=== PATIENT | male | born 1950 | race Caucasian/White ===

== ENCOUNTER 2020-07-12 08:08 | Day surgery (SDC) | payer MEDICARE, OTHER ==
[2020-07-08 11:54] VITALS: BMI 37.1
[~2020-07-12 08:08] MED LIST: ALPRAZolam 0.25 MG TAB PO PRN; ALPRAZolam 0.5 MG TAB PO PRN; ASPIRIN 325 MG TAB PO STA; ATORVASTATIN 80 MG TAB PO STA; NITROGLYCERIN SL TABS 0.4 MG TAB SUBLINGUAL PRN; SODIUM CHLORIDE 0.9% 1,000 ML in EMPTY BAG 1 BAG IV ONE
[2020-07-12] MEDS ORDERED: SODIUM CHLORIDE 0.9% 1,000 ML IV ONE (08:35)
[2020-07-12 08:46] VITALS: RESP 16; TEMP 98.3
[2020-07-12] MEDS ORDERED: LIDOCAINE 1% INJ 10MG/ML (20 ML MDV) ONE (08:58)
[2020-07-12] MEDS ORDERED: VERAPAMIL 2.5 MG/ML 2 ML AMP ONE (08:58)
[2020-07-12] MEDS ORDERED: MIDAZOLAM 2 MG/2 ML VIAL IV ONE (09:15)
[2020-07-12] MEDS ORDERED: LIDOCAINE 1% INJ 10MG/ML (20 ML MDV) SQ ONE (09:16)
[2020-07-12] MEDS: VERAPAMIL SYRINGE (5 MG/10 ML) INTRAARTER ONE ×2 (09:18→09:34)
[2020-07-12] MEDS ORDERED: HEPARIN SODIUM 1,000 UN/ML (10ML VL) ONE (09:18)
[2020-07-12] MEDS ORDERED: HEPARIN SODIUM 1,000 UN/ML (10ML VL) IV ONE ×2 (09:19)
[2020-07-12] MEDS ORDERED: IOPAMIDOL-370 100ML BTL INJ ONE (09:34)
[2020-07-12] MEDS ORDERED: SODIUM CHLORIDE 0.9% 1,000 ML IV SCH (09:45)
--- NOTE | 2020-07-12 10:27 | CC ---
CARDIAC CATHETERIZATION REPORT DATE OF SERVICE: 07/12/2020. PERFORMING PHYSICIAN: Tre Raymundo MD. PROCEDURE PERFORMED: 1. Selective right and left coronary angiogram. 2. Left heart catheterization. INDICATION: This is a 70-year-old gentleman with hypertension and dyslipidemia who continues to have chest discomfort. He is known to have significant family history of coronary artery disease. Because of that, a heart catheterization was advised. APPROACH: Right radial artery. COMPLICATION: None. LEVEL OF SEDATION: Moderate with sedation length of 25 minutes. PROCEDURE DESCRIPTION: After obtaining an informed consent, the patient was brought to the cardiac dental laboratory technology teacher. The right radial artery was cannulated using micropuncture technique and a micropuncture wire passed easily, then I placed a 6-Palauan sheath at the right radial artery. After that, I gave the patient 2 mg of verapamil IA and 10,000 units of heparin IV. Selective right and left coronary angiogram performed using JR4 and JL3.5 catheters. Left heart catheterization was performed using the JR4 catheter which crossed the aortic valve, then I did pullback across the valve. The procedure was completed without any complication. SELECTIVE CORONARY ANGIOGRAM: 1. The right coronary artery is a large caliber vessel and it seems to be a dominant vessel. The RCA is chronically occluded in the very proximal portion and fills by collateral from the left coronary system. 2. The left main is a large caliber vessel. It is calcified with mild disease only. It bifurcates into LCX and LAD. 3. The LCX is a large caliber vessel, it is a nondominant vessel. The proximal left circumflex has mild disease only. The mid left circumflex appeared to be angiographically normal and gives rise into the first and second obtuse marginal branches, both appeared to have mild diffuse disease and the circumflex continues after that as a small to medium caliber vessel in the AV groove. 4. The LAD. The very proximal LAD appeared to be calcified with intermediate lesion, appeared to be in the range of 50% to 60%. The mid LAD appeared to have mild disease only and the LAD distally appeared to be angiographically normal. 5. HEMODYNAMICS: The LVEDP was about 10 to 12 mmHg without significant gradient across the aortic valve. CONCLUSION: 1. Calcified right and left coronary systems. 2. Chronic total occlusion of the RCA. 3. Mild to moderate nonobstructive disease involving the left circumflex. 4. Intermediate to severe lesion involving the proximal LAD appeared to be in the range of 50% to 60%. POSTPROCEDURE MANAGEMENT: 1. Giving the above anatomy, I did advise maximize medical treatment. 2. Aggressive cholesterol control. 3. If the patient continues to be symptomatic, we might consider doing an FFR of the LAD. SUSAN / REDD: [id number] /
[2020-07-12 14:24] VITALS: BP 132/76; PULSE 56
== END 2020-07-12 14:25 | disposition home or self-care (01) ==
LOC: CATHCVL 08:08
PROVIDERS: ATTEND Internal Medicine Interventional Cardiology
DX: I25.10 Atherosclerotic heart disease of native coronary artery without angina pectoris (principal); I25.82 Chronic total occlusion of coronary artery; I10 Essential (primary) hypertension; E78.00 Pure hypercholesterolemia, unspecified; Z88.7 Allergy status to serum and vaccine; Z79.82 Long term (current) use of aspirin; Z79.899 Other long term (current) drug therapy; Z82.49 Family history of ischemic heart disease and other diseases of the circulatory system
CPT/HCPCS: 93458; C1769; C1894; J2250; J2001; J1644; Q9967

== ENCOUNTER 2024-08-13 01:55 | Inpatient (IN) | payer MEDICARE, OTHER ==
[2024-08-13] MEDS: SODIUM CHLORIDE 0.9% 1,000 ML IV STA (02:45)
[2024-08-13] MEDS: ONDANSETRON 4 MG/2 ML VIAL IVP STA (02:45)
[2024-08-13] MEDS: HYDROmorphone 0.5 MG/0.5 ML SYRINGE IVP STA (02:45)
[2024-08-13 03:17] LABS: Basophils % (A) 0 %; Eosinophils # (A) 0.2 k/uL (0-0.7); Eosinophils % (A) 2 %; HCT 32.9 % (39.0-53.0); HGB 11.1 gm/dL (13.0-17.5); Lymphocytes # (A) 2.8 k/uL (1.0-4.8); Lymphocytes % (A) 31 %; MCH 31.5 pg (25.0-35.0); MCHC 33.6 g/dL (31.0-37.0); MCV 93.7 fL (80.0-100.0); Mean Platelet Volume 7.6; Monocytes # (A) 0.5 k/uL (0-1.0); Monocytes % (A) 6 %; Neutrophils # (A) 5.2 k/uL (1.3-7.7); Neutrophils % (A) 59 %; Platelet Count 210 k/uL (150-450); RBC 3.51 m/uL (4.30-5.90); RDW 15.3 % (11.5-15.5); WBC 8.8 k/uL (3.8-10.6)
[2024-08-13 03:43] LABS: ALT 23 U/L (4-49); AST 28 U/L (17-59); African American GFR (CKD) 53 (>60 ml/min/1.73 sqM); Albumin 3.1 g/dL (3.5-5.0); Alkaline Phosphatase 91 U/L (38-126); Anion Gap 3 mmol/L; Blood Urea Nitrogen 26 mg/dL (9-20); Calcium 8.6 mg/dL (8.4-10.2); Carbon Dioxide 26 mmol/L (22-30); Chloride 113 mmol/L (98-107); Glucose 105 mg/dL (74-99); Non-African American GFR(CKD) 45 (>60 ml/min/1.73 sqM); Potassium 3.9 mmol/L (3.5-5.1); Sodium 142 mmol/L (137-145); Total Bilirubin 0.5 mg/dL (0.2-1.3); Total Protein 5.7 g/dL (6.3-8.2)
[2024-08-13] MEDS ORDERED: NALOXONE 0.4 MG/ML 1 ML VIAL IV PRN (04:10)
[2024-08-13 04:11] LABS: Appearance,Urine Cloudy (Clear); Bacteria,Urine Few /hpf; Bilirubin,Urine Negative (Negative); Blood,Urine Trace (Negative); Color,Urine Yellow; Glucose,Urine (UA) Negative (Negative); Ketones,Urine Negative (Negative); Leukocyte Esterase,Urine Large (Negative); Mucus,Urine Rare /hpf; Nitrite,Urine Negative (Negative); PH, Urine 5.5 (5.0-8.0); Protein,Urine 1+ (Negative); RBC,Urine 8 /hpf (0-5); Specific Gravity,Urine 1.014 (1.001-1.035); Urobilinogen,Urine <2.0 mg/dL (<2.0); WBC,Urine >182 /hpf (0-5)
--- NOTE | 2024-08-13 04:19 | ED ---
General Adult HPI - General Chief complaint: Abdominal Pain Stated complaint: Abd pain Time Seen by Provider: 08/13/24 02:20 Source: patient, EMS, RN notes reviewed, old records reviewed Mode of arrival: EMS Limitations: no limitations - History of Present Illness Initial comments: Patient is a 74-year-old male presents emergency department for incarcerated hernia. Was transferred from [facility]. Has a history of cancer, hypertension currently on oral chemotherapy medication. States he was showering last night when he suddenly noticed a lump in his lower left abdomen. It was painful. Still passing gas and has not yet attempted a bowel movement. Denies nausea or vomiting. Does have a history of anterior abdominal hernias. Presented to [facility] where they found he had an incarcerated abdominal hernia. Labs otherwise were unremarkable. Transferred here for surgical evaluation. Apparently also had attempted reduction while at [facility]. Has no other acute complaints at this time. Presents for further evaluation. - Related Data Home Medications Medication Instructions Recorded Confirmed Aspirin [Adult Low Dose Aspirin EC] 81 mg PO HS 07/08/20 07/12/20 Celecoxib [CeleBREX] 200 mg PO DAILY 07/08/20 07/12/20 Citric Acid 590 mg PO DAILY 07/08/20 07/12/20 Omeprazole 20 mg PO DAILY 07/08/20 07/12/20 carvediloL [Coreg] 12.5 mg PO DAILY 07/08/20 07/12/20 hydroCHLOROthiazide [Hydrodiuril] 25 mg PO DAILY 07/08/20 07/12/20 Allergies Allergy/AdvReac Type Severity Reaction Status Date / Time Tetanus Vaccines and Toxoid Allergy Unknown Verified 08/13/24 02:02 Review of Systems ROS Statement: Those systems with pertinent positive or pertinent negative responses have been documented in the HPI. Review of Systems: CONST: Denies fever EYES: Denies blurry vision ENT: Denies nasal congestion C/V: Denies Chest pain RESP: Denies shortness of breath GI: Endorses abdominal pain : Denies dysuria SKIN: Denies rash. MSK: Denies joint pain. NEURO: Denies headache ROS Other: All systems not noted in ROS Statement are negative. Past Medical History Past Medical History: Cancer, GERD/Reflux, Hypertension, Renal Disease Additional Past Medical History / Comment(s): hx kidney stones, lung CA 2.5 year IV chemo and now PO Chemo, neuropathy History of Any Multi-Drug Resistant Organisms: None Reported Past Surgical History: Hernia Repair Additional Past Surgical History / Comment(s): lithotripsy, wire lt eyelid Past Anesthesia/Blood Transfusion Reactions: No Reported Reaction, Motion Sickness Past Psychological History: No Psychological Hx Reported Smoking Status: Former smoker Past Alcohol Use History: None Reported Past Drug Use History: None Reported - Past Family History Father Family Medical History: Cancer Mother Family Medical History: Cancer Sister(s) Family Medical History: Cancer General Exam - General Exam Comments Initial Comments: General: Appears in no acute distress. HEAD: Normal with no signs of head trauma. EYES: PERRLA, EOMI, conjunctiva normal, no discharge. ENT: Hearing grossly intact, normal oropharynx. RESPIRATORY: Clear breath sounds bilaterally. No wheezes, rales, or rhonchi. C/V: Regular rate and rhythm. S1 and S2 auscultated, no edema, peripheral pulses 2+ and intact throughout ABD: Abdomen is soft, with a distended mass located in the left lower quadrant groin region. I had an unsuccessful reduction attempt. EXT: Normal range of motion, no obvious deformity SKIN: No rashes or lesions observed on exposed skin. NEURO: Alert and oriented x 4. Limitations: no limitations Course Vital Signs 08/13/24 02:03 Temperature 98.9 F Pulse Rate 62 Respiratory 24 Rate Blood Pressure 117/71 O2 Sat by Pulse 97 Oximetry Medical Decision Making - Medical Decision Making Was pt. sent in by a medical professional or institution (, PA, INSTALLATION HELPER, urgent care, hospital, or longterm...) When possible be specific @ -Transferred from [facility] for surgical evaluation for incarcerated hernia Did you speak to anyone other than the patient for history (EMS, parent, family, police, friend...)? What history was obtained from this source @ -No Did you review nursing and triage notes (agree or disagree)? Why? @ -I reviewed and agree with nursing and triage notes Were old charts reviewed (outside hosp., previous admission, EMS record, old EKG, old radiological studies, urgent care reports/EKG's, longterm records)? Report findings @ -Reviewed [facility] charts. This includes CT imaging read which showed a moderate left inguinal hernia containing the colon without obstruction or strangulation. Differential Diagnosis (chest pain, altered mental status, abdominal pain women, abdominal pain men, vaginal bleeding, weakness, fever, dyspnea, syncope, headache, dizziness, GI bleed, back pain, seizure, CVA, palpatations, mental health, musculoskeletal)? @ -Differential Abdominal Pain Men: Appendicitis, cholecystitis, diverticulosis, ischemic bowel, pancreatitis, hepatitis, UTI, gastroenteritis, AAA, incarcerated hernia, bowel obstruction, constipation, inflammatory bowel, hepatitis, peptic ulcer disease, splenic infarction, perforated viscus, testicular torsion, this is not meant to be an all-inclusive list EKG interpreted by me (3pts min.). @ -None done X-rays interpreted by me (1pt min.). @ -None done CT interpreted by me (1pt min.). @ -None done U/S interpreted by me (1pt. min.). @ -None done What testing was considered but not performed or refused? (CT, X-rays, U/S, labs)? Why? @ -None What meds were considered but not given or refused? Why? @ -None Did you discuss the management of the patient with other professionals (professionals i.e. , PA, INSTALLATION HELPER, lab, RT, psych nurse, psychiatric social worker, load manager, teacher, energy control officer, case management rn)? Give summary @ -Discussed the case with Dr. Manning who accepted it onto his service. Medicine was consulted, Dr. Brian who accepted the consult. Was smoking cessation discussed for >3mins.? @ -No Was critical care preformed (if so, how long)? @ -No Were there social determinants of health that impacted care today? How? (Homelessness, low income, unemployed, alcoholism, drug addiction, transportation, low edu. Level, literacy, decrease access to med. care, fpc, rehab)? @ -No Was there de-escalation of care discussed even if they declined (Discuss DNR or withdrawal of care, Hospice)? DNR status @ -No What co-morbidities impacted this encounter? (DM, HTN, Smoking, COPD, CAD, Cancer, CVA, ARF, Chemo, Hep., AIDS, mental health diagnosis, sleep apnea, morbid obesity)? @ -None Was patient admitted / discharged? Hospital course, mention meds given and route, prescriptions, significant lab abnormalities, going to OR and other per tinent info. @ -Send the patient's presentation and physical exam, presents emergency department for incarcerated hernia after being transferred. We we will repeat labs. I did attempt reduction after analgesia with Dilaudid and inversion of the bed. This was unsuccessful. Vital signs are within acceptable limits. I did discuss the case with Dr. Manning who accepted the patient onto his service. I spoke with Dr. Urbano who accepted the medicine consult. Patient made NPO. Patient placed on maintenance fluids. Undiagnosed new problem with uncertain prognosis? @ -No Drug Therapy requiring intensive monitoring for toxicity (Heparin, Nitro, Insulin, Cardizem)? @ -No Were any procedures done? @ -No Diagnosis/symptom? @ -Incarcerated hernia, left inguinal region Acute, or Chronic, or Acute on Chronic? @ -Acute Uncomplicated (without systemic symptoms) or Complicated (systemic symptoms)? @ -Complicated Side effects of treatment? @ -No Exacerbation, Progression, or Severe Exacerbation? @ -No Poses a threat to life or bodily function? How? (Chest pain, USA, NE, pneumonia, PE, COPD, DKA, ARF, appy, cholecystitis, CVA, Diverticulitis, Homicidal, Suicidal, threat to staff... and all critical care pts) @ -Potentially, yes - Lab Data Result diagrams: 08/13/24 02:31 08/13/24 02:31 Lab Results 08/13/24 08/13/24 08/13/24 Range/Units 02:31 02:31 02:31 WBC 8.8 (3.8-10.6) k/uL RBC 3.51 L (4.30-5.90) m/uL Hgb 11.1 L (13.0-17.5) gm/dL Hct 32.9 L (39.0-53.0) % MCV 93.7 (80.0-100.0) fL MCH 31.5 (25.0-35.0) pg MCHC 33.6 (31.0-37.0) g/dL RDW 15.3 (11.5-15.5) % Plt Count 210 (150-450) k/uL MPV 7.6 Neutrophils % 59 % Lymphocytes % 31 % Monocytes % 6 % Eosinophils % 2 % Basophils % 0 % Neutrophils # 5.2 (1.3-7.7) k/uL Lymphocytes # 2.8 (1.0-4.8) k/uL Monocytes # 0.5 (0-1.0) k/uL Eosinophils # 0.2 (0-0.7) k/uL Basophils # 0.0 (0-0.2) k/uL Sodium 142 (137-145) mmol/L Potassium 3.9 (3.5-5.1) mmol/L Chloride 113 H (98-107) mmol/L Carbon Dioxide 26 (22-30) mmol/L Anion Gap 3 mmol/L BUN 26 H (9-20) mg/dL Creatinine 1.51 H (0.66-1.25) mg/dL Est GFR (CKD-EPI)AfAm 53 (>60 ml/min/1.73 sqM) Est GFR (CKD-EPI)NonAf 45 (>60 ml/min/1.73 sqM) Glucose 105 H (74-99) mg/dL Plasma Lactic Acid Deonte 0.7 (0.7-2.0) mmol/L Calcium 8.6 (8.4-10.2) mg/dL Total Bilirubin 0.5 (0.2-1.3) mg/dL AST 28 (17-59) U/L ALT 23 (4-49) U/L Alkaline Phosphatase 91 (38-126) U/L Total Protein 5.7 L (6.3-8.2) g/dL Albumin 3.1 L (3.5-5.0) g/dL Urine Color Urine Appearance (Clear) Urine pH (5.0-8.0) Ur Specific [place] (1.001-1.035) Urine Protein (Negative) Urine Glucose (UA) (Negative) Urine Ketones (Negative) Urine Blood (Negative) Urine Nitrite (Negative) Urine Bilirubin (Negative) Urine Urobilinogen (<2.0) mg/dL Ur Leukocyte Esterase (Negative) Urine RBC (0-5) /hpf Urine WBC (0-5) /hpf Urine WBC Clumps (None) /hpf Urine Bacteria (None) /hpf Urine Mucus (None) /hpf 08/13/24 Range/Units 03:04 WBC (3.8-10.6) k/uL RBC (4.30-5.90) m/uL Hgb (13.0-17.5) gm/dL Hct (39.0-53.0) % MCV (80.0-100.0) fL MCH (25.0-35.0) pg MCHC (31.0-37.0) g/dL RDW (11.5-15.5) % Plt Count (150-450) k/uL MPV Neutrophils % % Lymphocytes % % Monocytes % % Eosinophils % % Basophils % % Neutrophils # (1.3-7.7) k/uL Lymphocytes # (1.0-4.8) k/uL Monocytes # (0-1.0) k/uL Eosinophils # (0-0.7) k/uL Basophils # (0-0.2) k/uL Sodium (137-145) mmol/L Potassium (3.5-5.1) mmol/L Chloride (98-107) mmol/L Carbon Dioxide (22-30) mmol/L Anion Gap mmol/L BUN (9-20) mg/dL Creatinine (0.66-1.25) mg/dL Est GFR (CKD-EPI)AfAm (>60 ml/min/1.73 sqM) Est GFR (CKD-EPI)NonAf (>60 ml/min/1.73 sqM) Glucose (74-99) mg/dL Plasma Lactic Acid Deonte (0.7-2.0) mmol/L Calcium (8.4-10.2) mg/dL Total Bilirubin (0.2-1.3) mg/dL AST (17-59) U/L ALT (4-49) U/L Alkaline Phosphatase (38-126) U/L Total Protein (6.3-8.2) g/dL Albumin (3.5-5.0) g/dL Urine Color Yellow Urine Appearance Cloudy (Clear) Urine pH 5.5 (5.0-8.0) Ur Specific [place] 1.014 (1.001-1.035) Urine Protein 1+ H (Negative) Urine Glucose (UA) Negative (Negative) Urine Ketones Negative (Negative) Urine Blood Trace H (Negative) Urine Nitrite Negative (Negative) Urine Bilirubin Negative (Negative) Urine Urobilinogen <2.0 (<2.0) mg/dL Ur Leukocyte Esterase Large H (Negative) Urine RBC 8 H (0-5) /hpf Urine WBC >182 H (0-5) /hpf Urine WBC Clumps Many H (None) /hpf Urine Bacteria Few H (None) /hpf Urine Mucus Rare H (None) /hpf Disposition Clinical Impression: Incarcerated inguinal hernia Disposition: ADMITTED IP TO THIS HOSP Condition: Stable Referrals: None,Stated [Primary Care Provider] - 1-2 days Time of Disposition: 04:10
[2024-08-13] MEDS: HYDROmorphone 0.5 MG/0.5 ML SYRINGE IVP PRN (04:35)
--- NOTE | 2024-08-13 04:59 | P.CONS ---
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 Patient reports that he noticed that earlier today and that it quickly became more painful and swollen which prompted him to come to the emergency room. Denies any prior history of such masses. Denies any recent strenuous activity. Does report ongoing 2 out of 10 pain of the left groin at the time of interview which is improved with pain medications. Denies experiencing fever, chills, chest pain, shortness of breath, nausea, vomiting, diarrhea. The patient underwent a CT abdomen and Coleman which revealed a strangulated left inguinal hernia. The patient is thereby admitted under surgery service with medicine on consult. Laboratory evaluation in the emergency room revealed a hemoglobin of 11.1, chloride 113, BUN 26, creatinine 1.1, and lactic acid 2.7 with UA grossly abnormal. ED documentation reviewed and case discussed with ED provider. Review of systems: Pertinent positives and negatives as discussed in HPI, a complete review of systems was performed and all other systems are negative. Physical examination: Vital signs reviewed General: non toxic, no distress, appears at stated age, normal weight Derm: no unusual rashes/lesions, warm Head: atraumatic, normocephalic, symmetric Eyes: EOMI, no lid lag, anicteric sclera, pupils equal round reactive to light ENT: Nose and ears atraumatic Neck: No cervical lymphadenopathy, trachea midline, supple Mouth: no lip lesion, mucus membranes moist Cardiovascular: S1S2 reg, no murmur, positive dorsalis pedis pulse bilateral, no edema Lungs: CTA bilateral, no rhonchi, no rales, no accessory muscle use Abdominal: soft, nontender to palpation, no guarding, discussed sided inguinal hernia nonreducible with tenderness Ext: muscle strength 5 out of 5 in all 4 extremities grossly, no gross muscle atrophy, no contractures, Neuro: CN II-XI grossly intact, no gross focal neuro deficits Psych: Alert, oriented, appropriate affect Assessment: UTI Kidney injury, acute versus chronic Left inguinal hernia Chronic conditions: Hypertension, GERD, bladder malignancy with metastasis to lungs Imaging: The patient underwent a CT abdomen and Coleman which revealed a strangulated left inguinal hernia. Data Review: Laboratory evaluation in the emergency room revealed a hemoglobin of 11.1, chloride 113, BUN 26, creatinine 1.1, and lactic acid 2.7 with UA grossly abnormal. Plan: Continue with ceftriaxone Follow-up urine cultures Continue IV fluids normal saline 100 cc/h Continue with pain control with Dilaudid Defer the management of left inguinal hernia, pain control, and DVT prophylaxis to primary surgery service We appreciate this opportunity to be involved in this patient's care. We will follow the patient with you. For any further questions, please not hesitate to contact the [facility] inpatient team. Past Medical History Past Medical History: Cancer, GERD/Reflux, Hypertension, Renal Disease Additional Past Medical History / Comment(s): hx kidney stones, lung CA 2.5 year IV chemo and now PO Chemo, neuropathy History of Any Multi-Drug Resistant Organisms: None Reported Past Surgical History: Hernia Repair Additional Past Surgical History / Comment(s): lithotripsy, wire lt eyelid Past Anesthesia/Blood Transfusion Reactions: No Reported Reaction, Motion Sickness Past Psychological History: No Psychological Hx Reported Smoking Status: Former smoker Past Alcohol Use History: None Reported Past Drug Use History: None Reported - Past Family History Father Family Medical History: Cancer Mother Family Medical History: Cancer Sister(s) Family Medical History: Cancer Medications and Allergies Home Medications Medication Instructions Recorded Confirmed Type Aspirin [Adult Low Dose Aspirin EC] 81 mg PO HS 07/08/20 07/12/20 History Celecoxib [CeleBREX] 200 mg PO DAILY 07/08/20 07/12/20 History Citric Acid 590 mg PO DAILY 07/08/20 07/12/20 History Omeprazole 20 mg PO DAILY 07/08/20 07/12/20 History carvediloL [Coreg] 12.5 mg PO DAILY 07/08/20 07/12/20 History hydroCHLOROthiazide [Hydrodiuril] 25 mg PO DAILY 07/08/20 07/12/20 History Allergies Allergy/AdvReac Type Severity Reaction Status Date / Time Tetanus Vaccines and Toxoid Allergy Unknown Verified 08/13/24 02:02 Physical Exam Vitals: Vital Signs Temp Pulse Resp BP Pulse Ox 08/13/24 02:03 98.9 F 62 24 117/71 97 Intake and Output 08/12/24 08/12/2408/13/24 14:59 22:59 06:59 Other: Weight 69.4 kg Results CBC & Chem 7: 08/13/24 02:31 08/13/24 02:31 Labs: Abnormal Lab Results - Last 24 Hours (Table) 08/13/24 08/13/24 08/13/24 Range/Units 02:31 02:31 03:04 RBC 3.51 L (4.30-5.90) m/uL Hgb 11.1 L (13.0-17.5) gm/dL Hct 32.9 L (39.0-53.0) % Chloride 113 H (98-107) mmol/L BUN 26 H (9-20) mg/dL Creatinine 1.51 H (0.66-1.25) mg/dL Glucose 105 H (74-99) mg/dL Total Protein 5.7 L (6.3-8.2) g/dL Albumin 3.1 L (3.5-5.0) g/dL Urine Protein 1+ H (Negative) Urine Blood Trace H (Negative) Ur Leukocyte Esterase Large H (Negative) Urine RBC 8 H (0-5) /hpf Urine WBC >182 H (0-5) /hpf Urine WBC Clumps Many H (None) /hpf Urine Bacteria Few H (None) /hpf Urine Mucus Rare H (None) /hpf
--- NOTE | 2024-08-13 11:41 | P.GSHP ---
History of Present Illness H&P Date: 08/13/24 CHIEF COMPLAINT: Left inguinal hernia HISTORY OF PRESENT ILLNESS: This is a 74-year-old male who was a transfer from [place]. Patient reports that he had noted a painful bulge in the left groin yesterday. He denies any heavy lifting, coughing or vomiting. Patient has a past medical history of bilateral inguinal hernia repair and umbilical hernia repair several years ago. Patient does have a known history of metastatic bladder cancer to the lungs. He is currently on chemotherapy. He r eports that he did have the cancer scraped from the bladder. Patient reports having bowel movements. He had a CT scan completed at [place] that reported a moderate left inguinal hernia containing colon without obstruction or strangulation. Patient does have a known history of coronary artery disease. He reports following with cardiology and had seen his assistance representative last month. Patient reports no intervention was planned he is medical management and they are monitoring him for possibly eventually needing stent placement. Patient denies any chest pain or shortness of breath. PAST MEDICAL HISTORY: See below PAST SURGICAL HISTORY: See below MEDICATIONS: See below ALLERGIES: See below SOCIAL HISTORY: No illicit drug use. REVIEW OF SYSTEMS: CONSTITUTIONAL: Denies fever or chills. HEENT: Denies blurred vision, vision changes, or eye pain. Denies hemoptysis CARDIOVASCULAR: Denies chest pain or pressure. RESPIRATORY: No shortness of breath. GASTROINTESTINAL: See HPI for pertinent findings HEMATOLOGIC: Denies bleeding disorders. GENITOURINARY: Denies any blood in urine or increased urinary frequency. SKIN: Denies pruitis. Denies rash. PHYSICAL EXAM: VITAL SIGNS: Reviewed GENERAL: Well-developed in no acute distress. HEENT: No sclera icterus. Extraocular movements grossly intact. Moist buccal mucosa. Head is atraumatic, normocephalic. No nasal drainage. ABDOMEN: Soft. Nondistended. Left inguinal hernia bulge, tender with palpation. Nonreducible. NEUROLOGIC: Alert and oriented. Cranial nerves II through XII grossly intact. LABORATORY DATA: WBC 8.8 Hgb 11.1 platelets 210 Sodium 142 potassium 3.9 creatinine 1.51 Lactic acid 0.7 IMAGING: CT scan from [place] reported moderate left inguinal hernia containing colon without obstruction or strangulation. 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 ASSESSMENT: 1. Incarcerated left inguinal hernia 2. History of bladder cancer with mets to the lung 3. Prior history of bilateral inguinal hernia repair and umbilical hernia repair PLAN: -Patient scheduled for open repair of incarcerated left inguinal hernia today with Dr. Manning -Keep patient n.p.o. -Continue pain management -Preop EKG ordered Physician Missile Mechanic note has been reviewed by physician. Signing provider agrees with the documented findings, assessment, and plan of care. I have personally seen and examined the patient, reviewed the INFORMATICS DEVELOPER /PAs history, exam and MDM and agree with the assessment and plan as written. Based on total visit time, I have performed more than 50% of the visit. As above: Patient seen while still in the ER. Patient with complex medical history including metastatic bladder cancer and coronary artery disease. Presents with complaints of left groin pain and has a CAT scan showing an incarcerated left inguinal hernia containing colon. Patient believes he had th is hernia repaired 30 years ago. Also says he had the right side fixed previously. Did not know the left-sided hernia came back until he was in the shower yesterday with pain. On exam the patient only has a visible inguinal scar at this time on the right side. Patient admits that he may be mistaken about the previous left hernia repair. With mild difficulty the hernia was able to be reduced. Options reviewed with patient. Will postpone today's surgery so that we can obtain appropriate medical clearance. Discussed with oncology his oral chemotherapy medication and they do not believe this should impact our decision regarding surgery or postoperative healing to any significant degree. They do not feel that consultation is required. Will consult cardiology. Will tentatively schedule for laparoscopic da Hattie assisted repair left inguinal hernia with mesh, possible open, possible bilateral. If cardiology feels patient is moderate to high risk would recommend either observation with truss support or open repair under local anesthesia, spinal anesthesia, or general. Patient is agreeable. Called the patient's and she did not answer. Past Medical History Past Medical History: Cancer, GERD/Reflux, Hypertension, Renal Disease Additional Past Medical History / Comment(s): hx kidney stones, lung CA 2.5 year IV chemo and now PO Chemo, neuropathy History of Any Multi-Drug Resistant Organisms: None Reported Past Surgical History: Hernia Repair Additional Past Surgical History / Comment(s): lithotripsy, wire lt eyelid Past Anesthesia/Blood Transfusion Reactions: No Reported Reaction, Motion Sickness Past Psychological History: No Psychological Hx Reported Smoking Status: Former smoker Past Alcohol Use History: None Reported Past Drug Use History: None Reported - Past Family History Father Family Medical History: Cancer Mother Family Medical History: Cancer Sister(s) Family Medical History: Cancer Medications and Allergies Home Medications Medication Instructions Recorded Confirmed Type Aspirin EC [Ecotrin Low Dose] 81 mg PO HS 08/13/24 08/13/24 History Atorvastatin [Lipitor] 80 mg PO HS 08/13/24 08/13/24 History Citric Acid 590 mg PO DAILY 08/13/24 08/13/24 History Erdafitinib [Balversa] 4 mg PO MOWEFR 08/13/24 08/13/24 History Omeprazole [PriLOSEC] 20 mg PO DAILY 08/13/24 08/13/24 History Allergies Allergy/AdvReac Type Severity Reaction Status Date / Time Tetanus Vaccines and Toxoid Allergy Unknown Verified 08/13/24 10:34 Surgical - Exam Vital Signs Temp Pulse Resp BP Pulse Ox 98.9 F 62 24 117/71 97 08/13/24 02:03 08/13/24 02:03 08/13/24 02:03 08/13/24 02:03 08/13/24 02:03 Results - Labs 08/13/24 02:31 08/13/24 02:31 Abnormal Lab Results - Last 24 Hours (Table) 08/13/24 08/13/24 08/13/24 Range/Units 02:31 02:31 03:04 RBC 3.51 L (4.30-5.90) m/uL Hgb 11.1 L (13.0-17.5) gm/dL Hct 32.9 L (39.0-53.0) % Chloride 113 H (98-107) mmol/L BUN 26 H (9-20) mg/dL Creatinine 1.51 H (0.66-1.25) mg/dL Glucose 105 H (74-99) mg/dL Total Protein 5.7 L (6.3-8.2) g/dL Albumin 3.1 L (3.5-5.0) g/dL Urine Protein 1+ H (Negative) Urine Blood Trace H (Negative) Ur Leukocyte Esterase Large H (Negative) Urine RBC 8 H (0-5) /hpf Urine WBC >182 H (0-5) /hpf Urine WBC Clumps Many H (None) /hpf Urine Bacteria Few H (None) /hpf Urine Mucus Rare H (None) /hpf Diabetes panel 08/13/24 Range/Units 02:31 Sodium 142 (137-145) mmol/L Potassium 3.9 (3.5-5.1) mmol/L Chloride 113 H (98-107) mmol/L Carbon Dioxide 26 (22-30) mmol/L BUN 26 H (9-20) mg/dL Creatinine 1.51 H (0.66-1.25) mg/dL Glucose 105 H (74-99) mg/dL Calcium 8.6 (8.4-10.2) mg/dL AST 28 (17-59) U/L ALT 23 (4-49) U/L Alkaline Phosphatase 91 (38-126) U/L Total Protein 5.7 L (6.3-8.2) g/dL Albumin 3.1 L (3.5-5.0) g/dL Calcium panel 08/13/24 Range/Units 02:31 Calcium 8.6 (8.4-10.2) mg/dL Albumin 3.1 L (3.5-5.0) g/dL Pituitary panel 08/13/24 Range/Units 02:31 Sodium 142 (137-145) mmol/L Potassium 3.9 (3.5-5.1) mmol/L Chloride 113 H (98-107) mmol/L Carbon Dioxide 26 (22-30) mmol/L BUN 26 H (9-20) mg/dL Creatinine 1.51 H (0.66-1.25) mg/dL Glucose 105 H (74-99) mg/dL Calcium 8.6 (8.4-10.2) mg/dL Adrenal panel 08/13/24 Range/Units 02:31 Sodium 142 (137-145) mmol/L Potassium 3.9 (3.5-5.1) mmol/L Chloride 113 H (98-107) mmol/L Carbon Dioxide 26 (22-30) mmol/L BUN 26 H (9-20) mg/dL Creatinine 1.51 H (0.66-1.25) mg/dL Glucose 105 H (74-99) mg/dL Calcium 8.6 (8.4-10.2) mg/dL Total Bilirubin 0.5 (0.2-1.3) mg/dL AST 28 (17-59) U/L ALT 23 (4-49) U/L Alkaline Phosphatase 91 (38-126) U/L Total Protein 5.7 L (6.3-8.2) g/dL Albumin 3.1 L (3.5-5.0) g/dL
[2024-08-13] MEDS: ATORVASTATIN 80 MG TAB PO SCH (20:31)
[2024-08-13] MEDS: ASPIRIN 81 MG PO SCH (20:31)
[2024-08-14] MEDS: ACETAMINOPHEN TAB 325 MG TAB PO STA ×2 (06:08→21:02)
[2024-08-14 09:13] LABS: Basophils # (A) 0.06 X 10*3/uL (0.00-0.10); Basophils % (A) 0.8 %; Eosinophils # (A) 0.31 X 10*3/uL (0.04-0.35); Eosinophils % (A) 4.1 %; HCT 33.2 % (39.6-50.0); HGB 10.9 g/dL (13.0-17.0); Lymphocytes # (A) 2.49 X 10*3/uL (0.90-5.00); Lymphocytes % (A) 32.8 %; MCH 31.1 pg (27.0-32.0); MCHC 32.8 g/dL (32.0-37.0); MCV 94.9 FL (80.0-97.0); Mean Platelet Volume 9.5 FL (9.5-12.2); Monocytes # (A) 0.82 X 10*3/uL (0.20-1.00); Monocytes % (A) 10.8 %; NRBC Per 100 WBC 0 X 10*3/uL (0.00-0.01); Neutrophils # (A) 3.88 X 10*3/uL (1.80-7.70); Neutrophils % (A) 51.2 %; Platelet Count 185 X 10*3/uL (140-440); RDW 15.4 % (11.5-14.5); WBC 7.58 X 10*3/uL (4.50-10.00)
--- NOTE | 2024-08-14 09:36 | CA ---
Transthoracic Echo Report Name: César Akbar Age: 74 Gender: M : 1950 Exam Date: 08/13/2024 15:32 Exam Location: [facility] Ht (in): 66 Wt (lb): 153 Ordering Physician: Sera Pinon Attending/Referring Phys: [id number], Kathrin Logistics Project Manager Liz Pearce, WANDA Procedure CPT: Indications: LV function, hx of CAD Cardiac Hx: Bladder Cancer, Lung Cancer Technical Quality: Fair Contrast 1: Total Dose (mL): Contrast 2: Total Dose (mL): MEASUREMENTS (Male / Female) Normal Values 2D ECHO LV Diastolic Diameter PLAX 4.4 cm 4.2 - 5.9 / 3.9 - 5.3 cm LV Systolic Diameter PLAX 2.8 cm IVS Diastolic Thickness 1.2 cm 0.6 - 1.0 / 0.6 - 0.9 cm LVPW Diastolic Thickness 1.1 cm 0.6 - 1.0 / 0.6 - 0.9 cm LV Relative Wall Thickness 0.5 RV Internal Dim ED PLAX 2.4 cm LA Systolic Diameter LX 4.0 cm 3.0 - 4.0 / 2.7 - 3.8 cm LV Diastolic Volume MOD BP 45.5 cm??? 67 - 155 / 56 - 104 cm??? LV Systolic Volume MOD BP 14.3 cm??? - 58 / 19 - 49 cm??? LV Ejection Fraction MOD BP 68.5 % >= 55 % LV Cardiac Index MOD BP 1413.0 cm???/min???m??? LV Diastolic Volume MOD 4C 52.1 cm??? LV Systolic Volume MOD 4C 14.6 cm??? LV Ejection Fraction MOD 4C 72.0 % LV Cardiac Index MOD 4C 1701.1 cm???/min???m??? LV Diastolic Length 4C 6.9 cm LV Systolic Length 4C 6.0 cm LV Diastolic Volume MOD 2C 35.1 cm??? LV Systolic Volume MOD 2C 12.8 cm??? LV Ejection Fraction MOD 2C 63.6 % LV Cardiac Index MOD 2C 1012.6 cm???/min???m??? LV Diastolic Length 2C 6.0 cm LV Systolic Length 2C 5.3 cm LA Volume 40.9 cm??? 18 - 58 / 22 - 52 cm??? LA Volume Index 22.6 cm???/m??? 16 - 28 cm???/m??? M-MODE Aortic Root Diameter MM 3.8 cm LA Systolic Diameter MM 3.2 cm LA Ao Ratio MM 0.8 AV Cusp Separation MM 1.8 cm DOPPLER MV Area PHT 2.7 cm??? Mitral E Point Velocity 50.2 cm/s Mitral A Point Velocity 68.6 cm/s Mitral E to A Ratio 0.7 MV Deceleration Time 281.7 ms TR Peak Velocity 278.6 cm/s TR Peak Gradient 31.0 mmHg Right Ventricular Systolic Press 35.2 mmHg FINDINGS Left Ventricle Left ventricular ejection fraction is estimated at 55-60%. Mildly increased septal wall thickness. Left ventricular cavity size normal. Mildly increased left ventricular wall thickness. No obvious regional wall motion abnormalities. Right Ventricle Moderate right ventricular dilatation. Mild pulmonary hypertension. Right Atrium Mild right atrial dilatation. Left Atrium Mild left atrial dilatation. Mitral Valve Structurally normal mitral valve. Mild mitral regurgitation. No mitral stenosis. Aortic Valve Trileaflet aortic valve. No aortic stenosis. No aortic regurgitation. Tricuspid Valve Structurally normal tricuspid valve. Mild tricuspid regurgitation. No tricuspid stenosis. Pulmonic Valve Structurally normal pulmonic valve. Trace pulmonic regurgitation. No pulmonic stenosis. Pericardium No pericardial or pleural effusion. Aorta Mild aortic dilatation at the level of the sinuses of valsalva (root). CONCLUSIONS Normal LV size and systolic function with mild concentric LVH. There is mild to moderate dilatation of right ventricle noted. Mildly elevated right-sided pressures. Mild mitral and tricuspid regurgitation. No pericardial effusion Previewed by: Dr. Maria Elena Crooks MD (Electronically Signed) Final Date: 14 August 2024 09:35
--- NOTE | 2024-08-14 10:46 | P.CRDCN ---
History of Present Illness History of present illness: HISTORY OF PRESENT ILLNESS: This is a 74-year-old male with a past medical history significant for coronary artery disease, known chronic total occlusion of the RCA and intermediate disea se involving the LAD, hypertension, hyperlipidemia, and metastatic bladder cancer. Patient follows in the office with Dr. Raymundo. We have been asked to see the patient in consultation for cardiac clearance. Patient was transferred from [facility] secondary to discomfort in his left groin. Patient underwent a CAT scan revealing moderate left inguinal hernia containing colon without obstruction or strangulation. He was evaluated by general surgery and is scheduled for robotic assisted repair of left inguinal hernia on 08/17/[address] Manning. Patient examined this morning at the bedside. Patient currently denies chest pain or pressure. He denies shortness of breath. Denies dizziness or lightheadedness. Patient states he has been doing well from a cardiac standpoint. He denies having any episodes of chest pain prior to coming into the hospital. He states he is able to walk up a flight of stairs or walk 1 block without having chest pain or shortness of breath. DIAGNOSTICS: - EKG reveals sinus bradycardia with no signs of acute ischemia. - Laboratory data: WBC 8.8. Hemoglobin 11.1. Platelet count 210. Sodium 142. Potassium 3.9. BUN 26. Creatinine 1.51. - Current home cardiac medications include atorvastatin 80 mg at night and aspirin 81 mg at night - Echocardiogram completed this admission reveals ejection fraction 55 to 60%, no obvious regional wall motion abnormalities, mild pulmonary hypertension, mild MR, mild TR. No pericardial effusion. - Cardiac catheterization history: June 2020 revealing 50% proximal LAD, 100% distal RCA, mild disease in circumflex and left main REVIEW OF SYSTEMS: At the time of my exam: CONSTITUTIONAL: Denies fever or chills. HEENT: Denies blurred vision, vision changes, or eye pain. Denies hemoptysis CARDIOVASCULAR: Denies chest pain. Denies orthopnea. Denies PND. Denies palpitations RESPIRATORY: Denies shortness of breath. GASTROINTESTINAL: Denies abdominal pain. Denies nausea or vomiting. HEMATOLOGIC: Denies bleeding disorders. GENITOURINARY: Denies any blood in urine. SKIN: Denies pruitis. Denies rash. PHYSICAL EXAM: VITAL SIGNS: Reviewed. GENERAL: Well-developed in no acute distress. HEENT: Head is normocephalic. Pupils are equal, round. Sclerae anicteric. Mucous membranes of the mouth are moist. Neck supple. No JVD or thyromegaly LUNGS: Respirations even and unlabored. Lungs essentially clear to auscultation bilaterally. HEART: Regular rate and rhythm. S1 and S2 heard. ABDOMEN: Soft. Nondistended. Nontender. EXTREMITIES: Normal range of motion. No clubbing or cyanosis. Peripheral pu lses intact. No lower extremity edema NEUROLOGIC: Awake and alert. Oriented x 3. ASSESSMENT: Incarcerated left inguinal hernia Coronary artery disease with intermediate disease involving the LAD and LEAD HOUSEKEEPER of RCA Acute kidney injury, creatinine 1.51 on admission, baseline unknown Hypertension Hyperlipidemia Metastatic bladder cancer, on oral chemotherapy PLAN: 2D echo obtained and reviewed Continue current cardiac medications Patient denies having any complaints of angina. He is currently euvolemic without evidence of congestive heart failure. Patient is at moderate to high risk to undergo surgery from a cardiac standpoint. However there are no absolute contraindications for patient to proceed Patient is tentatively scheduled to undergo robotic assisted repair of left inguinal hernia on 08/17/[address] Manning We will continue to see patient and make recommendations accordingly Nurse practitioner note has been reviewed by physician. Signing provider agrees with the documented findings, assessment, and plan of care documented by MAINSPRING STRIP INSPECTOR as a scribe. Past Medical History Past Medical History: Cancer, GERD/Reflux, Hypertension, Renal Disease Additional Past Medical History / Comment(s): hx kidney stones, lung CA 2.5 year IV chemo and now PO Chemo, neuropathy History of Any Multi-Drug Resistant Organisms: None Reported Past Surgical History: Hernia Repair Additional Past Surgical History / Comment(s): lithotripsy, wire lt eyelid Past Anesthesia/Blood Transfusion Reactions: No Reported Reaction, Motion Sickne ss Past Psychological History: No Psychological Hx Reported Smoking Status: Former smoker Past Alcohol Use History: None Reported Past Drug Use History: None Reported - Past Family History Father Family Medical History: Cancer Mother Family Medical History: Cancer Sister(s) Family Medical History: Cancer Medications and Allergies Home Medications Medication Instructions Recorded Confirmed Type Aspirin EC [Ecotrin Low Dose] 81 mg PO HS 08/13/24 08/13/24 History Atorvastatin [Lipitor] 80 mg PO HS 08/13/24 08/13/24 History Citric Acid 590 mg PO DAILY 08/13/24 08/13/24 History Erdafitinib [Balversa] 4 mg PO MOWEFR 08/13/24 08/13/24 History Omeprazole [PriLOSEC] 20 mg PO DAILY 08/13/24 08/13/24 History Allergies Allergy/AdvReac Type Severity Reaction Status Date / Time Tetanus Vaccines and Toxoid Allergy Unknown Verified 08/13/24 10:34 Physical Exam Vitals: Vital Signs Temp Pulse Resp BP Pulse Ox 08/13/24 13:43 86 18 119/66 97 08/13/24 12:01 71 16 101/70 90 L 08/13/24 11:33 64 18 100/55 91 L 08/13/24 07:38 56 L 18 111/69 08/13/24 05:12 51 L 14 98/61 96 08/13/24 02:03 98.9 F 62 24 117/71 97 Intake and Output 08/12/24 08/13/24 08/13/24 22:59 06:59 14:59 Other: Weight 69.4 kg Results 08/14/24 06:00 08/13/24 02:31 Cardiac Enzymes 08/13/24 Range/Units 02:31 AST 28 (17-59) U/L CBC 08/13/24 Range/Units 02:31 WBC 8.8 (3.8-10.6) k/uL RBC 3.51 L (4.30-5.90) m/uL Hgb 11.1 L (13.0-17.5) gm/dL Hct 32.9 L (39.0-53.0) % Plt Count 210 (150-450) k/uL Comprehensive Metabolic Panel 08/13/24 Range/Units 02:31 Sodium 142 (137-145) mmol/L Potassium 3.9 (3.5-5.1) mmol/L Chloride 113 H (98-107) mmol/L Carbon Dioxide 26 (22-30) mmol/L BUN 26 H (9-20) mg/dL Creatinine 1.51 H (0.66-1.25) mg/dL Glucose 105 H (74-99) mg/dL Calcium 8.6 (8.4-10.2) mg/dL AST 28 (17-59) U/L ALT 23 (4-49) U/L Alkaline Phosphatase 91 (38-126) U/L Total Protein 5.7 L (6.3-8.2) g/dL Albumin 3.1 L (3.5-5.0) g/dL Current Medications Generic Name Dose Route Start Last Admin Trade Name Freq PRN Reason Stop Dose Admin Hydromorphone HCl 0.5 mg 08/13/24 04:10 08/13/24 12:09 Hydromorphone 0.5 Mg/0.5 Ml Syringe IVP 0.5 mg Q3HR PRN Administration Moderate Pain (Scale 4 to 6) Ceftriaxone Sodium 1 gm/ 50 mls @ 100 mls/hr 08/14/24 06:00 Sodium Chloride IVPB Q24H PAL Protocol Naloxone HCl 0.2 mg 08/13/24 04:10 Naloxone 0.4 Mg/Ml 1 Ml Vial IV Q2M PRN Opioid Reversal Ondansetron HCl 4 mg 08/13/24 04:10 Ondansetron 4 Mg/2 Ml Vial IVP Q8HR PRN Nausea And Vomiting Intake and Output 08/12/24 08/13/24 08/13/24 22:59 06:59 14:59 Other: Weight 69.4 kg 08/13/24 02:31 08/13/24 02:31
--- NOTE | 2024-08-14 10:50 | P.PN ---
Subjective Progress Note Date: 08/14/24 SURGICAL PROGRESS NOTE CHIEF COMPLAINT: Incarcerated left inguinal hernia HISTORY OF PRESENT ILLNESS: Dr. Manning was able to reduce left inguinal hernia yesterday. Hernia remains reduced. He is having flatus. He does report some tenderness in that left groin. Afebrile. WBC 7.58 Hgb 10.9 platelets 195. PHYSICAL EXAM: VITAL SIGNS: Reviewed. GENERAL: Well-developed in no acute distress. ABDOMEN: Soft. Nondistended. Mild tenderness with palpation left lower groin. Hernia is reduced. NEUROLOGIC: Alert and oriented. Cranial nerves II through XII grossly intact. ASSESSMENT: 1. Incarcerated left inguinal hernia 2. History of bladder cancer with mets to the lung 3. Prior history of bilateral inguinal hernia repair and umbilical hernia repair 4. History of coronary artery disease PLAN: -Patient scheduled for left inguinal hernia repair on Saturday with Dr. Manning -Patient has received cardiac clearance and is considered a moderate to high risk per cardiology service Physician Clay Molder note has been reviewed by physician. Signing provider agrees with the documented findings, assessment, and plan of care. I have personally seen and examined the patient, reviewed the PROBATION SUPERVISOR /PAs history, exam and MDM and agree with the assessment and plan as written. Based on total visit time, I have performed more than 50% of the visit. As above: Patient denies any significant left-sided inguinal pain. Case discussed with cardiology and anesthesia. High risk for surgical intervention. Will attempt open repair recurrent left inguinal hernia with mesh under sedation with local anesthesia. This will be scheduled on Saturday. Objective - Vital Signs Vital signs: Vital Signs Temp 98 F 08/14/24 07:35 Pulse 57 L 08/14/24 07:35 Resp 16 08/14/24 07:35 BP 95/53 08/14/24 07:35 Pulse Ox 94 L 08/14/24 02:00 FiO2 Intake & Output 08/13/24 08/14/24 08/14/24 18:59 06:59 18:59 Output Total 400 Balance -400 Weight 69.4 kg Output: Urine 400 Other: Voiding Method Toilet Urinal - Labs CBC & Chem 7: 08/14/24 06:00 08/13/24 02:31 Labs: Abnormal Lab Results - Last 24 Hours (Table) 08/14/24 Range/Units 06:00 RBC 3.50 L (4.40-5.60) X 10*6/uL Hgb 10.9 L (13.0-17.0) g/dL Hct 33.2 L (39.6-50.0) % RDW 15.4 H (11.5-14.5) %
[2024-08-14 15:21] LABS: ALT 19 U/L (10-49); AST 22 U/L (14-35); Albumin 3.3 g/dL (3.8-4.9); Albumin/Globulin Ratio 1.65 Ratio (1.60-3.17); Alkaline Phosphatase 107 U/L (41-126); BUN/Creat Ratio 12.31 Ratio (12.00-20.00); Blood Urea Nitrogen 19.7 mg/dL (9.0-27.0); Carbon Dioxide 26.8 mmol/L (21.6-31.8); Chloride 108 mmol/L (96-109); Glucose 91 mg/dL (70-110); Potassium 4.2 mmol/L (3.5-5.5); Sodium 142 mmol/L (135-145); Total Bilirubin 0.5 mg/dL (0.3-1.2); Total Protein 5.3 g/dL (6.2-8.2)
--- NOTE | 2024-08-14 16:36 | P.PN ---
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 for left groin swelling. Patient reports that he noticed that earlier today and that it quickly became more painful and swollen which prompted him to come to the emergency room. Denies any prior history of such masses. Denies any recent strenuous activity. Does report ongoing 2 out of 10 pain of the left groin at the time of interview which is improved with pain medications. Denies experiencing fever, chills, chest pain, shortness of breath, nausea, vomiting, diarrhea. The patient underwent a CT abdomen and [place] which revealed a strangulated left inguinal hernia. The patient is thereby admitted under surgery service with medicine on consult. Laboratory evaluation in the emergency room revealed a hemoglobin of 11.1, chloride 113, BUN 26, creatinine 1.1, and lactic acid 2.7 with UA grossly abnormal. Patient was started on Rocephin and UCx was collected. Cardiology was consulted for medical clearance, patient is high risk with no absolute contraindications for patient to proceed. Plans for robotic assisted repair of left inguinal hernia on 08/17/[address] Manning. 08/14 Patient was seen and examined. He has no complaints. UCx growing GNB. CBC and CMP significant for RBC 3.5, Hg 10.9, Hct 33.2, Cr 1.6, alb 3.3. Echo EF 55- 60% mild LVH, mild MR/TR. General: non toxic, no distress, appears at stated age Derm: warm, dry Head: atraumatic, normocephalic, symmetric Eyes: EOMI, no lid lag, anicteric sclera Mouth: no lip lesion, mucus membranes moist Cardiovascular: S1S2 reg, no murmur Lungs: Clear to auscultation bilaterally, no rhonchi, no rales , no accessory muscle use Abd: Non distended. Non tender to palpation. Soft. Ext: no gross muscle atrophy, no edema, no contractures Neuro: no focal neuro deficits Psych: Alert, oriented, appropriate affect Based on my assessment of this patient, this patient meets a high complexity level of care. UTI: UCx GNB. Continue Rocephin 1g IV QD. Follow UCx. Kidney injury, acute versus chronic: Unknown baseline. Encourage hydration by mouth. Avoid nephrotoxic meds. Obtain renal US. Bladder scan once. NS at 100 cc/hr. Left inguinal hernia: Plans for robotic assisted repair of left inguinal hernia on 08/17/[address] Manning Chronic conditions: Hypertension, GERD, bladder malignancy with metastasis to lungs CODE STATUS: FULL CODE. DVT Prophylaxis: GI Prophylaxis: Designated medical POA if patient is not able to make medical decisions for th emselves: I have reviewed the following quality compliance consultant notes: I have reviewed the results of the following tests: CBC, CMP, Echo, UCx. I have ordered the following tests: Renal US I have discussed the care of this patient with the following independent historian: I have independently interpreted the following test below: I have discussed the management of this patient with the following physician: Objective - Vital Signs Vital signs: Vital Signs Temp 98 F 08/14/24 11:55 Pulse 63 08/14/24 11:55 Resp 16 08/14/24 11:55 BP 118/63 08/14/24 13:35 Pulse Ox 92 L 08/14/24 11:55 FiO2 Intake & Output 08/13/24 08/14/24 08/14/24 18:59 06:59 18:59 Output Total 400 Balance -400 Weight 69.4 kg Output: Urine 400 Other: Voiding Method Toilet Urinal - Labs CBC & Chem 7: 08/14/24 06:00 08/14/24 06:00 Labs: Abnormal Lab Results - Last 24 Hours (Table) 08/14/24 08/14/24 Range/Units 06:00 06:00 RBC 3.50 L (4.40-5.60) X 10*6/uL Hgb 10.9 L (13.0-17.0) g/dL Hct 33.2 L (39.6-50.0) % RDW 15.4 H (11.5-14.5) % Creatinine 1.6 H (0.6-1.5) mg/dL Est GFR (CKD-EPI) 45 L (>=60) Total Protein 5.3 L (6.2-8.2) g/dL Albumin 3.3 L (3.8-4.9) g/dL Microbiology - Last 24 Hours (Table) 08/13/24 03:04 Urine Culture - Preliminary Urine,Clean Catch Gram Neg Bacilli
--- NOTE | 2024-08-14 18:16 | US ---
EXAMINATION TYPE: US renals and bladder DATE OF EXAM: 08/14/2024 COMPARISON: CT 08/12/2024 CLINICAL INDICATION: Male, 74 years old with history of HEAVEN; HEAVEN, h/o stones, no symptoms today, pend ing hernia repair TECHNIQUE: Grayscale and color Doppler imaging of the bilateral kidneys and urinary bladder: FINDINGS: EXAM MEASUREMENTS: Right Kidney: 9.8 x 4.5 x 4.5cm Left Kidney: 9.9 x 5.1 x 4.5 cm Right Kidney: 0.5x 0.4cm echogenic foci may represent stone Left Kidney: There may be mild hydronephrosis Bladder: wnl IMPRESSION: 1. There is mild left-sided pelvicaliectasis which may be transient or could reflect mild hydronephro sis. 2. Possible 5 mm nonobstructive right renal stone. [facility], , 08/14/2024 6:14 PM
--- NOTE | 2024-08-15 10:41 | XR ---
EXAMINATION TYPE: XR chest 1V portable DATE OF EXAM: 08/15/2024 10:18 AM CLINICAL INDICATION: Male, 74 years old with history of hypoxia; COMPARISON: None TECHNIQUE: XR chest 1V portable Frontal view of the chest. FINDINGS: Lungs/Pleura: There is no evidence of pleural effusion, focal consolidation, or pneumothorax. Pulmonary vascularity: Unremarkable. Heart/mediastinum: Cardiomediastinal silhouette is unremarkable. Musculoskeletal: No acute osseous pathology. IMPRESSION: No acute cardiopulmonary disease/process. [facility], , 08/15/2024 10:39 AM
--- NOTE | 2024-08-15 11:12 | P.PN ---
Subjective Progress Note Date: 08/15/24 DANISHA. Endorses persistent left inguinal hernia pain. No abdominal pain, N/V. No F/C. Admits to flatus and BM. Voiding without issue. Objective - Vital Signs Vital signs: Vital Signs Temp 97.8 F 08/15/24 07:44 Pulse 70 08/15/24 07:44 Resp 17 08/15/24 07:44 BP 117/75 08/15/24 07:44 Pulse Ox 91 L 08/15/24 07:44 FiO2 Intake & Output 08/14/24 08/15/24 08/15/24 18:59 06:59 18:59 Intake Total 540 640 Balance 540 640 Intake: Intake, IV Titration 100 Amount cefTRIAXone 1 gm In 100 Sodium Chloride 0.9% 50 ml @ 100 mls/hr IVPB Q24H [facility] Rx#:[id number] Oral 540 540 Other: Voiding Method Toilet Urinal - Exam Gen: AxO, NAD Pulm: non-labored respirations Abd: soft, incarcerated left inguinal hernia appreciated; tender to palpation. No overlying skin changes or erythema. No fluctuence appreciated. Non-distended abdomen. No guarding/rebound/rigidity Extrem: no edema seen - Labs CBC & Chem 7: 08/14/24 06:00 08/14/24 06:00 Labs: Abnormal Lab Results - Last 24 Hours (Table) 08/14/24 Range/Units 06:00 Creatinine 1.6 H (0.6-1.5) mg/dL Est GFR (CKD-EPI) 45 L (>=60) Total Protein 5.3 L (6.2-8.2) g/dL Albumin 3.3 L (3.8-4.9) g/dL Microbiology - Last 24 Hours (Table) 08/13/24 03:04 Urine Culture - Preliminary Urine,Clean Catch Gram Neg Bacilli Assessment and Plan Assessment: Patient is a 74 year old male with symptomatic incarcerated left inguinal hernia. Plan: -Diet as tolerated -NPO at midnight on 08/16 -PRN pain and nausea control -Activity as tolerated -Care per primary -Plan for OR on 08/17 Alon Wilcox M.D. General Surgery
[2024-08-15] MEDS: ARTIFICIAL TEARS-HYPROMELLOSE DROPS 15 ML BTL BOTH EYES PRN (12:25)
--- NOTE | 2024-08-15 12:42 | P.PN ---
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 Patient reports that he noticed that earlier today and that it quickly became more painful and swollen which prompted him to come to the emergency room. Denies any prior history of such masses. Denies any recent strenuous activity. Does report ongoing 2 out of 10 pain of the left groin at the time of interview which is improved with pain medications. Denies experiencing fever, chills, chest pain, shortness of breath, nausea, vomiting, diarrhea. The patient underwent a CT abdomen and [place] which revealed a strangulated left inguinal hernia. The patient is thereby admitted under surgery service with medicine on consult. Laboratory evaluation in the emergency room revealed a hemoglobin of 11.1, chloride 113, BUN 26, creatinine 1.1, and lactic acid 2.7 with UA grossly abnormal. Patient was started on Rocephin and UCx was collected. Cardiology was consulted for medical clearance, Echo EF 55-60% mild LVH, mild MR/TR, patient is high risk with no absolute contraindications for patient to proceed. Plans for robotic assisted repair of left inguinal hernia on 08/17/[address] Manning. 08/15 Patient was seen and examined. He has no complaints. Requesting eye drops. UCx growing GNB. Hypoxic to 88% on RA this morning without any complaints. Renal US 5 mm nonobstructive right renal stone, mild left sided pelvicaliectasis. General: non toxic, no distress, appears at stated age Derm: warm, dry Head: atraumatic, normocephalic, symmetric Eyes: EOMI, no lid lag, anicteric sclera Mouth: no lip lesion, mucus membranes moist Cardiovascular: S1S2 reg, no murmur Lungs: Clear to auscultation bilaterally, no rhonchi, no rales , no accessory muscle use Ext: no gross muscle atrophy, no edema, no contractures Neuro: no focal neuro deficits Psych: Alert, oriented, appropriate affect Based on my assessment of this patient, this patient meets a high complexity level of care. Hypoxia: Obtain CXR. History of COPD. May need O2 on discharge. UTI: UCx GNB. Continue Rocephin 1g IV QD. Follow UCx. Kidney injury, acute versus chronic: Unknown baseline. Encourage hydration by mouth. Avoid nephrotoxic meds. Obtain renal US. Bladder scan once. NS at 100 cc/hr. Left inguinal hernia: Plans for robotic assisted repair of left inguinal hernia on 08/17/[address] Manning Chronic conditions: Hypertension, GERD, bladder malignancy with metastasis to lungs CODE STATUS: FULL CODE. DVT Prophylaxis: GI Prophylaxis: Designated medical POA if patient is not able to make medical decisions for themselves: I have reviewed the following systems security consultant notes: Surgery note. I have reviewed the results of the following tests: Renal US. I have ordered the following tests: CXR. I have discussed the care of this patient with the following independent historian: LUI. I have independently interpreted the following test below: I have discussed the management of this patient with the following physician: Objective - Vital Signs Vital signs: Vital Signs Temp 97.8 F 08/15/24 07:44 Pulse 70 08/15/24 07:44 Resp 17 08/15/24 07:44 BP 117/75 08/15/24 07:44 Pulse Ox 91 L 08/15/24 07:44 FiO2 Intake & Output 08/14/24 08/15/24 08/15/24 18:59 06:59 18:59 Intake Total 540 640 Balance 540 640 Intake: Intake, IV Titration 100 Amount cefTRIAXone 1 gm In 100 Sodium Chloride 0.9% 50 ml @ 100 mls/hr IVPB Q24H [facility] Rx#:[id number] Oral 540 540 Other: Voiding Method Toilet Urinal - Labs CBC & Chem 7: 08/14/24 06:00 08/14/24 06:00 Labs: Abnormal Lab Results - Last 24 Hours (Table) 08/14/24 Range/Units 06:00 Creatinine 1.6 H (0.6-1.5) mg/dL Est GFR (CKD-EPI) 45 L (>=60) Total Protein 5.3 L (6.2-8.2) g/dL Albumin 3.3 L (3.8-4.9) g/dL Microbiology - Last 24 Hours (Table) 08/13/24 03:04 Urine Culture - Preliminary Urine,Clean Catch Gram Neg Bacilli
--- NOTE | 2024-08-15 12:54 | P.PN ---
Subjective Progress Note Date: 08/15/24 This is David Diamond NP, I'm dictating on behalf of Dr. Marrufo's H&P and A&P. Patient was interviewed and examined. Patient is a pleasant 74-year-old male who presented to the hospital with an incarcerated hernia and cardiology was requested for clearance. Patient reports that he had no issues overnight. He is denying chest pain, shortness of breath, heart palpitations, dizziness, and near syncope. Patient is sinus mechanism on the monitor. GENERAL: Well-appearing, well-nourished and in no acute distress. NECK: Supple without JVD or thyromegaly. LUNGS: Breath sounds clear to auscultation bilaterally. Respiration equal and unlabored. No wheezes, rales or rhonchi. HEART: Regular rate and rhythm without murmurs, rubs or gallops. S1 and S2 heard. EXTREMITIES: Normal range of motion, no edema. No clubbing or cyanosis. Peripheral pulses intact and strong. VITALS: Temp 97.8, pulse 70, respirations 17, blood pressure 117/75, O2 saturation 91% on room air TELEMETRY: Sinus mechanism LABS: No new labs since 08/14/2024 IMPRESSION: 1. Incarcerated left inguinal hernia 2. Coronary artery disease with intermediate disease involving the LAD and RETINAL SURGEON of RCA 3. Acute kidney injury 4. Hypertension 5. Hyperlipidemia 6. Metastatic bladder cancer, on oral chemotherapy PLAN: Continue current cardiac medications as ordered. Patient is at moderate to high risk to undergo surgery from a cardiac standpoint, however there are no absolute contraindications for the patient to proceed. Patient denies chest pain. He is euvolemic without evidence of CHF. No further recommendations from a cardiology standpoint. Thank you for allowing us to participate in the care of this patient. Objective - Vital Signs Vital signs: Vital Signs Temp 97.8 F 08/15/24 07:44 Pulse 70 08/15/24 07:44 Resp 17 08/15/24 07:44 BP 117/75 08/15/24 07:44 Pulse Ox 91 L 08/15/24 07:44 FiO2 Intake & Output 08/14/24 08/15/24 08/15/24 18:59 06:59 18:59 Intake Total 540 640 Balance 540 640 Intake: Intake, IV Titration 100 Amount cefTRIAXone 1 gm In 100 Sodium Chloride 0.9% 50 ml @ 100 mls/hr IVPB Q24H [facility] Rx#:[id number] Oral 540 540 Other: Voiding Method Toilet Urinal - Labs CBC & Chem 7: 08/14/24 06:00 08/14/24 06:00 Labs: Abnormal Lab Results - Last 24 Hours (Table) 08/14/24 Range/Units 06:00 Creatinine 1.6 H (0.6-1.5) mg/dL Est GFR (CKD-EPI) 45 L (>=60) Total Protein 5.3 L (6.2-8.2) g/dL Albumin 3.3 L (3.8-4.9) g/dL Microbiology - Last 24 Hours (Table) 08/13/24 03:04 Urine Culture - Preliminary Urine,Clean Catch Gram Neg Bacilli
[2024-08-15] MEDS: SODIUM CHLORIDE 0.65% NASAL SPRAY 44 ML BTL NASAL PRN (21:49)
[2024-08-16] MEDS: polyethylene glycoL 3350 17 GM POWD.PACK PO SCH (09:17)
--- NOTE | 2024-08-16 09:23 | P.PN ---
Subjective Progress Note Date: 08/16/24 Principal diagnosis: Left inguinal hernia Patient doing well today. Says the hernia did pop back out. No nausea or vomiting. Pain is less than when he came in. Objective - Vital Signs Vital signs: Vital Signs Temp 97.7 F 08/16/24 07:08 Pulse 65 08/16/24 07:08 Resp 17 08/16/24 07:08 BP 125/73 08/16/24 07:08 Pulse Ox 95 08/16/24 07:08 FiO2 Intake & Output 08/15/24 08/16/24 08/16/24 18:59 06:59 18:59 Intake Total 1080 Balance 1080 Intake: Oral 1080 Other: # Voids 3 4 - Exam Abdomen: Soft, nondistended, hernia reducible and nontender - Labs CBC & Chem 7: 08/14/24 06:00 08/14/24 06:00 Labs: Microbiology - Last 24 Hours (Table) 08/13/24 03:04 Urine Culture - Final Urine,Clean Catch Klebsiella pneumoniae Assessment and Plan (1) Incarcerated inguinal hernia Narrative/Plan: 74-year-old male with recent incarcerated left inguinal hernia. Will proceed with open repair left inguinal hernia with mesh. Risks of bleeding, infection, recurrence, bladder and bowel injury, numbness, nerve injury were discussed with the patient. The patient understands and wishes to proceed. Current Visit: Yes Status: Acute Code(s): K40.30 - UNIL INGUINAL HERNIA, W OBST, W/O GANGR, NOT SPCF RECUR SNOMED Code(s): 442954751
--- NOTE | 2024-08-16 12:57 | P.PN ---
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 Patient reports that he noticed that earlier today and that it quickly became more painful and swollen which prompted him to come to the emergency room. Denies any prior history of such masses. Denies any recent strenuous activity. Does report ongoing 2 out of 10 pain of the left groin at the time of interview which is improved with pain medications. Denies experiencing fever, chills, chest pain, shortness of breath, nausea, vomiting, diarrhea. The patient underwent a CT abdomen and [place] which revealed a strangulated left inguinal hernia. The patient is thereby admitted under surgery service with medicine on consult. Laboratory evaluation in the emergency room revealed a hemoglobin of 11.1, chloride 113, BUN 26, creatinine 1.1, and lactic acid 2.7 with UA grossly abnormal. Patient was started on Rocephin and UCx was collected. Cardiology was consulted for medical clearance, Echo EF 55-60% mild LVH, mild MR/TR, patient is high risk with no absolute contraindications for patient to proceed. Plans for robotic assisted repair of left inguinal hernia on 08/17/[address] Manning. 08/16 Patient was seen and examined. He has no complaints. UCx growing K. pneumoniae. CXR done yesterday negative. Plans for robotic assisted repair of left inguinal hernia on 08/17/[address] Manning. General: non toxic, no distress, appears at stated age Derm: warm, dry Head: atraumatic, normocephalic, symmetric Eyes: EOMI, no lid lag, anicteric sclera Mouth: no lip lesion, mucus membranes moist Cardiovascular: S1S2 reg, no murmur Lungs: Clear to auscultation bilaterally, no rhonchi, no rales , no accessory muscle use Ext: no gross muscle atrophy, no edema, no contractures Neuro: no focal neuro deficits Psych: Alert, oriented, appropriate affect Based on my assessment of this patient, this patient meets a high complexity level of care. Hypoxia: CXR neg. History of COPD. Home O2 eval prior to discharge. UTI: UCx K. pneumoniae. Continue Rocephin 1g IV QD (D3). Kidney injury, acute versus chronic: Unknown baseline. Encourage hydration by mouth. Avoid nephrotoxic meds. Renal US as above. Bladder scan once. Left inguinal hernia: Plans for robotic assisted repair of left inguinal hernia on 08/17/[address] Manning Chronic conditions: Hypertension, GERD, bladder malignancy with metastasis to lungs CODE STATUS: FULL CODE. DVT Prophylaxis: GI Prophylaxis: Designated medical POA if patient is not able to make medical decisions for themselves: I have reviewed the following senior staff consultant notes: Cardiology, Surgery note. I have reviewed the results of the following tests: UCx I have ordered the following tests: I have discussed the care of this patient with the following independent historian: I have independently interpreted the following test below: CXR I have discussed the management of this patient with the following physician: Objective - Vital Signs Vital signs: Vital Signs Temp 97.7 F 08/16/24 07:08 Pulse 65 08/16/24 07:08 Resp 17 08/16/24 07:08 BP 125/73 08/16/24 07:08 Pulse Ox 95 08/16/24 07:08 FiO2 Intake & Output 08/15/24 08/16/24 08/16/24 18:59 06:59 18:59 Intake Total 1080 Balance 1080 Intake: Oral 1080 Other: # Voids 3 4 - Labs CBC & Chem 7: 08/14/24 06:00 08/14/24 06:00 Labs: Microbiology - Last 24 Hours (Table) 08/13/24 03:04 Urine Culture - Final Urine,Clean Catch Klebsiella pneumoniae
[2024-08-17] MEDS: IV FLUID CONTINUATION 1,000 ML IV ONE ×2 (06:49→08:52)
[2024-08-17] MEDS: DEXAMETHASONE SOD PHOSPHATE 4 MG/ML 1 ML VIAL IVP STA (06:52)
[2024-08-17] MEDS: ONDANSETRON 4 MG/2 ML VIAL IVP PRN (06:52)
[2024-08-17] MEDS: MIDAZOLAM 2 MG/2 ML VIAL IVP ONE (07:11)
[2024-08-17] MEDS ORDERED: HEPARIN SODIUM,PORCINE 5,000 UNIT/ML 1 ML VIAL ONE (07:28)
[2024-08-17] MEDS ORDERED: KETAMINE HCL IN 0.9 % NACL 50 MG/5 ML SYRINGE ONE (07:28)
[2024-08-17] MEDS ORDERED: PROPOFOL 10 MG/ML 20 ML VIAL IV ONE (07:28)
[2024-08-17] MEDS ORDERED: PHENYLEPHRINE-0.9% NACL SYG 1,000 MCG/10 ML SYRINGE ONE (07:28)
[2024-08-17] MEDS ORDERED: MIDAZOLAM 2 MG/2 ML VIAL ONE (07:28)
[2024-08-17] MEDS ORDERED: fentaNYL (PF) 50 MCG/ML 2 ML AMP ONE (07:28)
[2024-08-17] MEDS ORDERED: ROPIVACAINE 5 MG/ML 30 ML VIAL ONE (07:28)
[2024-08-17] MEDS ORDERED: DEXAMETHASONE SOD PHOSPHATE 4 MG/ML 1 ML VIAL ONE (07:28)
--- NOTE | 2024-08-17 07:28 | P.ANPRN ---
Procedure Note - Anesthesia - Nerve Block Performed Bilateral Erector Spinae Single Time Out Performed: Yes Date of Procedure: 08/17/24 Procedure Start Time: :10 Procedure Stop Time: 07:15 Location of Patient: PreOp Indication: Acute Post-Operative Pain, Analgesia, Requested by Surgeon Sedation Type: Sedate with meaningful contact maintained Preparation: Sterile Prep Position: Prone Catheter: None Needle Types: Pajunk Needle Gauge: 21 Ultrasound used to visualize needle placement: Yes Ultrasound used to observe medication spread: Yes Injectate: 0.5% Ropivacaine (see comment for volume) ([id number]+Decadron 4mg--Each side.) Blood Aspirated: No Pain Paresthesia on Injection Noted: No Resistance on Injection: Normal Image Stored and Saved: Yes Events: Uneventful and Well Tolerated
[2024-08-17] MEDS: BUPIVACAINE (PF) 0.25% 30 ML VIAL SQ ONE ×2 (07:53)
[2024-08-17] MEDS ORDERED: HYDROcodone/APAP 5-325MG 1 EACH TAB PO PRN (08:55)
[2024-08-17] MEDS ORDERED: ACETAMINOPHEN TAB 325 MG TAB PO PRN (08:55)
[2024-08-17] MEDS ORDERED: IBUPROFEN 600 MG TAB PO PRN (08:55)
--- NOTE | 2024-08-17 08:58 | P.OP ---
Date of Procedure: 08/17/24 Procedure(s) Performed: PREOPERATIVE DIAGNOSIS: Left inguinal hernia POSTOPERATIVE DIAGNOSIS: Left indirect inguinal hernia with cord lipomas PROCEDURE: Open repair left inguinal hernia with mesh, excision cord lipoma x 2 SURGEON: Dr. Manning ANESTHESIA: General OPERATIVE PROCEDURE DETAILS: Patient was placed in the operating table in the supine position and placed under sedation. The perioperative area was localized with Marcaine solution. An oblique incision was made in the left groin. Dissection down through the subcutaneous tissues took place using electrocautery. The external oblique fascia was incised using a scalpel. This opening was lengthened using the Metzenbaum scissors. The spermatic cord was encircled with a Kiefer drain. The spermatic cord structures were identified and preserved. Careful dissection revealed an indirect hernia sac. This was carefully dissected back to the internal inguinal ring where it was ligated using 2 separate 0 silk stick tie sutures. There were 2 prominent cord lipomas also identified and dissected back to the internal inguinal ring where they were ligated and excised. A 3" x 6" Prolene mesh was cut to fit on the exposed fascia. This was sutured to the pubic tubercle the folding edge of the inguinal ligament and the conjoined tendon using interrupted 0 Vicryl sutures. A slit was created in the mesh and the mesh was wrapped around the spermatic cord and sutured back to itself. The external oblique was then reapproximated using a running 2-0 Vicryl suture. The subcutaneous tissues were reapproximated using a 3-0 Vicryl sutures. The skin was closed using 4-0 Monocryl sutures. Skin glue and sterile dressings were then applied. TYPE OF MESH USED: Flat Prolene LOCATION OF MESH: [place] FIXATION: 0 Vicryl PREOPERATIVE DISCUSSION ON SMOKING CESSASTION: Yes PREOPERATIVE DISCUSSION ON MORBID OBESITY: Yes PREOPERATIVE DISCUSSION ON APPROPRIATE USE OF NARCOTIC USE: Yes PREOPERATIVE EDUCATION: Multi Modal, Smoking Cessation and Weight Loss with BMI over 35. DISPOSITION: Stable to recovery room
[2024-08-17 09:44] VITALS: RESP 14; TEMP 97.6
[2024-08-17 12:31] VITALS: BP 119/67
--- NOTE | 2024-08-17 12:35 | P.PN ---
Subjective Progress Note Date: 08/17/24 Patient is a pleasant 74-year-old male who presented to the hospital with an incarcerated hernia and cardiology was requested for clearance. Patient reports that he had no issues overnight. He is denying chest pain, shortness of breath, heart palpitations, dizziness, and near syncope. Patient is sinus mechanism on the monitor. VITALS: Temp 97.8, pulse 70, respirations 17, blood pressure 117/75, O2 saturation 91% on room air TELEMETRY: Sinus mechanism LABS: No new labs since 08/14/202408/17 Today, patient underwent open repair left inguinal hernia with mesh with Dr. Manning. Blood pressure 128/76, heart rate 64, pulse ox 88% on room air. No repeat blood work. No complaints of chest pain. GENERAL: Well-appearing, well-nourished and in no acute distress. NECK: Supple without JVD or thyromegaly. LUNGS: Breath sounds clear to auscultation bilaterally. Respiration equal and unlabored. No wheezes, rales or rhonchi. HEART: Regular rate and rhythm without murmurs, rubs or gallops. S1 and S2 heard. EXTREMITIES: Normal range of motion, no edema. No clubbing or cyanosis. Peripheral pulses intact and strong. IMPRESSION: 1. Incarcerated left inguinal hernia 2. Coronary artery disease with intermediate disease involving the LAD and CALIBRATION TESTER of RCA 3. Acute kidney injury 4. Hypertension 5. Hyperlipidemia 6. Metastatic bladder cancer, on oral chemotherapy PLAN: Continue current cardiac medications: Aspirin 81 mg daily, atorvastatin 80 mg at bedtime Nurse practitioner note has been reviewed, I agree with documented findings and plan of care. Patient was seen and examined. Objective - Vital Signs Vital signs: Vital Signs Temp 97.6 F 08/17/24 09:43 Pulse 64 08/17/24 10:07 Resp 14 08/17/24 09:43 BP 128/76 08/17/24 10:07 Pulse Ox 88 L 08/17/24 10:07 FiO2 Intake & Output 08/16/24 08/17/24 08/17/24 18:59 06:59 18:59 Intake Total 740 300 700 Output Total 20 Balance 740 300 680 Intake: IV 300 700 Oral 740 0 Output: Estimated Blood Loss 20 Other: Voiding Method Toilet Urinal # Voids 1 - Labs CBC & Chem 7: 08/14/24 06:00 08/14/24 06:00
--- NOTE | 2024-08-17 13:11 | P.DS ---
Providers Date of admission: 08/14/24 08:53 Expected date of discharge: 08/17/24 Attending physician: Lukas Manning Consults: 08/13/24 04:10 Consult Physician Routine Consulting Provider: Haley Brian Consult Reason/Comments: medical management Do you want consulting provider notified?: Yes 08/13/24 12:44 Consult Physician Routine Consulting Provider: Tre Raymundo Consult Reason/Comments: Preop cardiac clearance for hernia Do you want consulting provider notified?: Yes Primary care physician: Stated None - Discharge Diagnosis(es) (1) Incarcerated inguinal hernia Patient came in through the ER with left groin pain as a transfer from an outside hospital. Patient had an incarcerated left inguinal hernia. Initially this was thought to be recurrent however now this is felt to be a primary hernia. This was able to be reduced. He was seen by both medicine and cardiology. He underwent surgery today for open repair with mesh. Has done well. Patient seen up on the floor after surgery. He is voiding. He is tolerating diet. Will plan discharge today. Follow-up 1 week. Current Visit: Yes Status: Acute Patient Condition at Discharge: Stable Plan - Discharge Summary New Discharge Prescriptions: New HYDROcodone/APAP 5-325MG [[place] 5-325] 1 tab PO Q6HR PRN 3 Days #6 tab PRN Reason: Analgesia No Action Omeprazole [PriLOSEC] 20 mg PO DAILY Citric Acid 590 mg PO DAILY Aspirin EC [Ecotrin Low Dose] 81 mg PO HS Erdafitinib [Balversa] 4 mg PO MOWEFR Atorvastatin [Lipitor] 80 mg PO HS Discharge Medication List Aspirin EC [Ecotrin Low Dose] 81 mg PO HS 08/13/24 [History] Atorvastatin [Lipitor] 80 mg PO HS 08/13/24 [History] Citric Acid 590 mg PO DAILY 08/13/24 [History] Erdafitinib [Balversa] 4 mg PO MOWEFR 08/13/24 [History] Omeprazole [PriLOSEC] 20 mg PO DAILY 08/13/24 [History] HYDROcodone/APAP 5-325MG [[place] 5-325] 1 tab PO Q6HR PRN 3 Days #6 tab 08/17/24 [Rx] Follow up Appointment(s)/Referral(s): Lukas Manning MD [Medical Doctor] - 1 Week None,Stated [Primary Care Provider] - 1-2 days Activity/Diet/Wound Care/Special Instructions: PCP: Kelle Miller MD - [address] [facility] [address]
--- NOTE | 2024-08-17 13:34 | P.PN ---
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 Patient reports that he noticed that earlier today and that it quickly became more painful and swollen which prompted him to come to the emergency room. Denies any prior history of such masses. Denies any recent strenuous activity. Does report ongoing 2 out of 10 pain of the left groin at the time of interview which is improved with pain medications. Denies experiencing fever, chills, chest pain, shortness of breath, nausea, vomiting, diarrhea. The patient underwent a CT abdomen and [place] which revealed a strangulated left inguinal hernia. The patient is thereby admitted under surgery service with medicine on consult. Laboratory evaluation in the emergency room revealed a hemoglobin of 11.1, chloride 113, BUN 26, creatinine 1.1, and lactic acid 2.7 with UA grossly abnormal. Patient was started on Rocephin and UCx was collected. Cardiology was consulted for medical clearance, Echo EF 55-60% mild LVH, mild MR/TR, patient is high risk with no absolute contraindications for patient to proceed. Underwent robotic assisted repair of left inguinal hernia on 08/17/[address] Manning. 08/17 Patient was seen and examined. Post operatively. Sleepy from anesthesia. Pain well controlled. Continue Augmentin for 3 days to complete a total of 7 days antibiotics. Plans for discharge home today if tolerating diet. Home O2 eval prior to discharge discussed with RN. General: non toxic, no distress, appears at stated age Derm: warm, dry Head: atraumatic, normocephalic, symmetric Eyes: EOMI, no lid lag, anicteric sclera Mouth: no lip lesion, mucus membranes moist Cardiovascular: S1S2 reg, no murmur Lungs: Clear to auscultation bilaterally, no rhonchi, no rales , no accessory muscle use Ext: no gross muscle atrophy, no edema, no contractures Neuro: no focal neuro deficits Psych: Alert, oriented, appropriate affect Based on my assessment of this patient, this patient meets a high complexity level of care. Hypoxia: CXR neg. History of COPD. Home O2 eval prior to discharge. UTI: UCx K. pneumoniae. Rocephin 1g IV QD (D4). 3 more days of Augmentin to complete total 7 days. Kidney injury, acute versus chronic: Unknown baseline. Encourage hydration by mouth. Avoid nephrotoxic meds. Renal US as above. Left inguinal hernia: Status post robotic assisted repair of left inguinal hernia on 08/17/[address] Manning Chronic conditions: Hypertension, GERD, bladder malignancy with metastasis to lungs CODE STATUS: FULL CODE. DVT Prophylaxis: GI Prophylaxis: Designated medical POA if patient is not able to make medical decisions for themselves: I have reviewed the following analysis consultant notes: Operative note. I have reviewed the results of the following tests: UCx I have ordered the following tests: I have discussed the care of this patient with the following independent historian: LUI Taylor regarding home O2 eval. I have independently interpreted the following test below: I have discussed the management of this patient with the following physician: Objective - Vital Signs Vital signs: Vital Signs Temp 97.6 F 08/17/24 12:15 Pulse 65 08/17/24 12:15 Resp 14 08/17/24 12:15 BP 119/67 08/17/24 12:15 Pulse Ox 89 L 08/17/24 12:15 FiO2 Intake & Output 08/16/24 08/17/24 08/17/24 18:59 06:59 18:59 Intake Total 740 300 700 Output Total 20 Balance 740 300 680 Intake: IV 300 700 Oral 740 0 Output: Estimated Blood Loss 20 Other: Voiding Method Toilet Urinal # Voids 1 - Labs CBC & Chem 7: 08/14/24 06:00 08/14/24 06:00
[2024-08-17 13:57] VITALS: PULSE 71
== END 2024-08-17 14:44 | disposition home or self-care (01) | DRG 351 ==
LOC: EC 01:55 → 5NMEDONC 04:12 → OBSVTOIN 08-14 08:53
PROVIDERS: ADMIT Surgery; ATTEND Surgery
PROC: 0VBG0ZZ Excision of Left Spermatic Cord, Open Approach (ICD-10-PCS; 2024-08-17)
PROC: 0YU60JZ Supplement Left Inguinal Region with Synthetic Substitute, Open Approach (ICD-10-PCS; principal; 2024-08-17 07:30)
DX: K40.91 Unilateral inguinal hernia, without obstruction or gangrene, recurrent (principal); C78.01 Secondary malignant neoplasm of right lung; C78.02 Secondary malignant neoplasm of left lung; N17.9 Acute kidney failure, unspecified; N39.0 Urinary tract infection, site not specified; J44.9 Chronic obstructive pulmonary disease, unspecified; I10 Essential (primary) hypertension; D17.6 Benign lipomatous neoplasm of spermatic cord; I25.10 Atherosclerotic heart disease of native coronary artery without angina pectoris; I25.82 Chronic total occlusion of coronary artery; R09.02 Hypoxemia; N20.0 Calculus of kidney; E78.5 Hyperlipidemia, unspecified; Z79.1 Long term (current) use of non-steroidal anti-inflammatories (NSAID); Z87.891 Personal history of nicotine dependence; Z85.51 Personal history of malignant neoplasm of bladder; Z79.899 Other long term (current) drug therapy; Z92.3 Personal history of irradiation; Z79.82 Long term (current) use of aspirin; Z87.442 Personal history of urinary calculi
CPT/HCPCS: 36415; 64999; 71045; 76770; 80053; 81001; 83605; 85025; 87077; 87086; 87186; 88304; 93005; 93306; 96365; 96375; 96376; 99285

== ENCOUNTER 2025-02-18 11:39 | Observation (INO) | payer MEDICARE, OTHER ==
--- NOTE | 2025-02-18 12:46 | ED ---
General Adult HPI - General Chief complaint: Chest Pain Stated complaint: Chest Pain Time Seen by Provider: 02/18/25 11:47 Source: patient, RN/MD, EMS, RN notes reviewed Mode of arrival: EMS Limitations: no limitations - History of Present Illness Initial comments: Patient is a 74-year-old male presenting to the emergency department as a transfer from [facility]. Patient went there for chest discomfort. Patient does have history of coronary narrowing and was told by Dr. Sawyer he will need a stent at some point. Patient states symptoms did resolve with nitroglycerin x 3 however now are starting to return. Discomfort feels like an ache. There is some radiation towards the left arm. No nausea. No diaphoresis - Related Data Home Medications Medication Instructions Recorded Confirmed Aspirin EC [Ecotrin Low Dose] 81 mg PO HS 08/13/24 08/13/24 Atorvastatin [Lipitor] 80 mg PO HS 08/13/24 08/13/24 Citric Acid 590 mg PO DAILY 08/13/24 08/13/24 Erdafitinib [Balversa] 4 mg PO MOWEFR 08/13/24 08/13/24 Omeprazole [PriLOSEC] 20 mg PO DAILY 08/13/24 08/13/24 Previous Rx's Medication Instructions Recorded Amoxic-Pot Clav 875-125Mg 1 tab PO Q12HR 3 Days #6 tab 08/17/24 [Augmentin 875-125] HYDROcodone/APAP 5-325MG [[place] 1 tab PO Q6HR PRN 3 Days #6 tab 08/17/24 5-325] Allergies Allergy/AdvReac Type Severity Reaction Status Date / Time Tetanus Vaccines and Toxoid Allergy Unknown Verified 02/18/25 11:55 Review of Systems ROS Statement: Those systems with pertinent positive or pertinent negative responses have been documented in the HPI. ROS Other: All systems not noted in ROS Statement are negative. Constitutional: Denies: fever Eyes: Denies: eye pain ENT: Denies: ear pain Cardiovascular: Reports: as per HPI, chest pain Endocrine: Denies: fatigue Gastrointestinal: Denies: abdominal pain Musculoskeletal: Denies: back pain Past Medical History Past Medical History: Cancer, COPD, GERD/Reflux, Hypertension, Osteoarthritis (OA), Renal Disease Additional Past Medical History / Comment(s): hx kidney stones, lung CA 2.5 year IV chemo and now PO Chemo, neuropathy History of Any Multi-Drug Resistant Organisms: None Reported Past Surgical History: Hernia Repair Additional Past Surgical History / Comment(s): lithotripsy, wire lt eyelid Past Anesthesia/Blood Transfusion Reactions: No Reported Reaction, Motion Sickness Past Psychological History: No Psychological Hx Reported Smoking Status: Former smoker Past Alcohol Use History: None Reported Past Drug Use History: None Reported - Past Family History Father Family Medical History: Cancer Mother Family Medical History: Cancer Sister(s) Family Medical History: Cancer General Exam Limitations: no limitations General appearance: alert, in no apparent distress Head exam: Present: normocephalic Eye exam: Present: normal appearance Neck exam: Present: normal inspection Respiratory exam: Present: normal lung sounds bilaterally. Absent: chest wall tenderness Cardiovascular Exam: Present: regular rate, normal rhythm, normal heart sounds Expanded Peripheral pulses: 2+: Radial (R), Radial (L), Posterior Tibialis (R), Posterior Tibialis (L) GI/Abdominal exam: Present: soft. Absent: tenderness Extremities exam: Present: normal inspection. Absent: pedal edema, calf tenderness Neurological exam: Present: alert Psychiatric exam: Present: normal affect, normal mood Skin exam: Present: normal color Course Vital Signs 02/18/25 11:47 Temperature 99.4 F Pulse Rate 100 Respiratory 20 Rate Blood Pressure 142/91 O2 Sat by Pulse 92 L Oximetry Medical Decision Making - Medical Decision Making Was pt. sent in by a medical professional or institution (DAMIAN Sandoval, BOMB LOADER, urgent care, hospital, or snf...) When possible be specific @ -Patient sent from [place] Did you speak to anyone other than the patient for history (EMS, parent, family, police, friend...)? What history was obtained from this source @ -I did take to transferring physician Did you review nursing and triage notes (agree or disagree)? Why? @ -I reviewed and agree with nursing and triage notes Were old charts reviewed (outside hosp., previous admission, EMS record, old EKG, old radiological studies, urgent care reports/EKG's, snf records)? Report findings @ -Chart reviewed from [facility] Differential Diagnosis (chest pain, altered mental status, abdominal pain women, abdominal pain men, vaginal bleeding, weakness, fever, dyspnea, syncope, headache, dizziness, GI bleed, back pain, seizure, CVA, palpatations, mental health, musculoskeletal)? @ -Differential Chest Pain: Stable Angina, Unstable Angina, STEMI, NSTEMI Aortic Dissection, Pneumothorax, Musculoskeletal, Esophageal Spasm GERD, Cholecystitis, Pancreatitis, Zoster, this is not meant to be an all-inclusive list. EKG interpreted by me (3pts min.). @ -As above X-rays interpreted by me (1pt min.). @ -None done CT interpreted by me (1pt min.). @ -None done U/S interpreted by me (1pt. min.). @ -None done What testing was considered but not performed or refused? (CT, X-rays, U/S, labs)? Why? @ -None What meds were considered but not given or refused? Why? @ -None Did you discuss the management of the patient with other professionals (professionals i.e. , PA, BOMB LOADER, lab, RT, psych nurse, social service coordinator, patient sitter, teacher, compliance review officer, counter caser)? Give summary @ -Case discussed with Dr. Brown who will admit covering hospital call Was smoking cessation discussed for >3mins.? @ -No Was critical care preformed (if so, how long)? @ -No Were there social determinants of health that impacted care today? How? (Homelessness, low income, unemployed, alcoholism, drug addiction, transportation, low edu. Level, literacy, decrease access to med. care, chcf, rehab)? @ -No Was there de-escalation of care discussed even if they declined (Discuss DNR or withdrawal of care, Hospice)? DNR status @ -No What co-morbidities impacted this encounter? (DM, HTN, Smoking, COPD, CAD, Can cer, CVA, ARF, Chemo, Hep., AIDS, mental health diagnosis, sleep apnea, morbid obesity)? @ -History of coronary stenosis Was patient admitted / discharged? Hospital course, mention meds given and rou te, prescriptions, significant lab abnormalities, going to OR and other pertinent info. @ -Patient presents with chest discomfort as transfer from [facility], discomfort is starting to return following nitroglycerin. Patient is updated on results and plan. Patient will be admitted with cardiac consult, admission orders written. Undiagnosed new problem with uncertain prognosis? @ -No Drug Therapy requiring intensive monitoring for toxicity (Heparin, Nitro, Insulin, Cardizem)? @ -No Were any procedures done? @ -No Diagnosis/symptom? @ -Chest pain Acute, or Chronic, or Acute on Chronic? @ -Acute Uncomplicated (without systemic symptoms) or Complicated (systemic symptoms)? @ -Default Side effects of treatment? @ -No Exacerbation, Progression, or Severe Exacerbation? @ -No Poses a threat to life or bodily function? How? (Chest pain, [place], [place], pneumonia, PE, COPD, DKA, ARF, appy, cholecystitis, CVA, Diverticulitis, Homicidal, Suicidal, threat to staff... and all critical care pts) @ -Threat to cardiac function Disposition Clinical Impression: Chest pain Disposition: ADMITTED IP TO THIS HOSP Is patient prescribed a controlled substance at d/c from ED?: No Referrals: Kelle Miller MD [Primary Care Provider] - 1-2 days Time of Disposition: 12:52
[2025-02-18] MEDS ORDERED: NITROGLYCERIN SL TABS 0.4 MG TAB SUBLINGUAL PRN (12:53)
[2025-02-18] MEDS: ASPIRIN 81 MG PO STA (13:14)
[2025-02-18] MEDS: NITROGLYCERIN OINT 1 INCH/GM PACKET TOPICAL SCH (13:15)
--- NOTE | 2025-02-18 14:35 | P.CRDCN ---
History of Present Illness Consult date: 02/18/25 Consult reason: chest pain History of present illness: This is a 74-year-old male patient of Dr. Raymundo with past medical history of coronary artery disease with known ROOM SERVER of the RCA and intermediate disease involving the LAD, hypertension, dyslipidemia, history of bladder cancer with metastatic disease to the kidneys and lungs currently on oral Balversa, chronic kidney disease, COPD, remote history of tobacco use. Patient states that he woke and had bad chest pain this morning on the left side of his chest involved his left arm. He states the pain right now is a #7. He was initially seen at [facility] and transferred to [facility]. He does have tenderness to the chest wall. Discussed results of the initial testing and patient is agreeable to move forward with a stress test tomorrow. Lab work obtained at [place] revealed WBC 8, hemoglobin 13.3, platelet count 169, BUN 21 creatinine 1.7, troponin 5.1 with normal scale 0-17.5. Patient is seen today in the emergency center waiting for a bed on the observation unit. -EKG: Sinus rhythm with no acute ST changes. -Home cardiac medications: Aspirin 81 mg daily, atorvastatin 80 mg at bedtime. -Cardiac catheterization performed 2019 revealed 50% proximal LAD, 100% distal RCA, mild disease in the left circumflex and left main -Echocardiogram performed 08/13/2024 at [facility] revealed EF of 55 to 60% with mild concentric LVH. Mild to moderate dilatation of the right ventricle. Mildly elevated right-sided pressures. Mild mitral and tricuspid regurgitation. No pericardial effusion. Review Of Systems: At the time of my exam: CONSTITUTIONAL: Denies fever or chills. HEENT: Denies blurred vision, vision changes, or eye pain. Denies hemoptysis CARDIOVASCULAR: Denies chest pain. Denies orthopnea. Denies PND. Denies palpitations RESPIRATORY: Denies shortness of breath. GASTROINTESTINAL: Denies abdominal pain. Denies nausea or vomiting. HEMATOLOGIC: Denies bleeding disorders. GENITOURINARY: Denies any blood in urine. SKIN: Denies puritis. Denies rash. Physical examination: Gen: This is 74-year-old male in no acute distress. VS: reviewed HEENT: Head is atraumatic, normocephalic. Pupils equal, round. Sclerae is anicteric. NECK: Supple. No JVD. LUNGS: Clear to auscultation. No wheezes or rhonchi. No intercostal retractions. HEART: Regular rate and rhythm. No murmur. ABDOMEN: Soft No tenderness. EXTREMITIES: No pedal edema. No calf tenderness. NEUROLOGICAL: Patient is awake, alert and oriented x3. Assessment: Chest pain Coronary artery disease with known ROOM SERVER of the RCA and intermediate disease involving the LAD Hypertension Dyslipidemia History of bladder cancer with metastatic disease to the kidneys and lungs Chronic kidney disease stage III COPD Remote history of tobacco use Plan: Resume patient's home cardiac medications Repeat troponins Obtain 2-D echocardiogram and Doppler study to assess cardiac structure and function Further recommendations to follow based upon clinical course Thank you kindly for this consultation. Nurse practitioner note has been reviewed, I agree with documented findings and plan of care. Patient was seen and examined. Past Medical History Past Medical History: Cancer, COPD, GERD/Reflux, Hypertension, Osteoarthritis (OA), Renal Disease Additional Past Medical History / Comment(s): hx kidney stones, lung CA 2.5 year IV chemo and now PO Chemo, neuropathy History of Any Multi-Drug Resistant Organisms: None Reported Past Surgical History: Hernia Repair Additional Past Surgical History / Comment(s): lithotripsy, wire lt eyelid Past Anesthesia/Blood Transfusion Reactions: No Reported Reaction, Motion Sickness Past Psychological History: No Psychological Hx Reported Smoking Status: Former smoker Past Alcohol Use History: None Reported Past Drug Use History: None Reported - Past Family History Father Family Medical History: Cancer Mother Family Medical History: Cancer Sister(s) Family Medical History: Cancer Medications and Allergies Home Medications Medication Instructions Recorded Confirmed Type Aspirin EC [Ecotrin Low Dose] 81 mg PO HS 08/13/24 08/13/24 History Atorvastatin [Lipitor] 80 mg PO HS 08/13/24 08/13/24 History Citric Acid 590 mg PO DAILY 08/13/24 08/13/24 History Erdafitinib [Balversa] 4 mg PO MOWEFR 08/13/24 08/13/24 History Omeprazole [PriLOSEC] 20 mg PO DAILY 08/13/24 08/13/24 History Amoxic-Pot Clav 875-125Mg 1 tab PO Q12HR 3 Days #6 tab 08/17/24 Rx [Augmentin 875-125] HYDROcodone/APAP 5-325MG [[place] 1 tab PO Q6HR PRN 3 Days #6 tab 08/17/24 Rx 5-325] Allergies Allergy/AdvReac Type Severity Reaction Status Date / Time Tetanus Vaccines and Toxoid Allergy Unknown Verified 02/18/25 11:55 Physical Exam Vitals: Vital Signs Temp Pulse Resp BP Pulse Ox 02/18/25 11:47 99.4 F 100 20 142/91 92 L Intake and Output 02/17/25 02/18/25 02/18/25 22:59 06:59 14:59 Other: Weight 58.967 kg Results Current Medications Generic Name Dose Route Start Last Admin Trade Name Freq PRN Reason Stop Dose Admin Aspirin 81 mg 02/18/25 21:00 Aspirin 81 Mg PO HS PAL Atorvastatin Calcium 80 mg 02/18/25 21:00 Atorvastatin 80 Mg Tab PO HS PAL Nitroglycerin 0.4 mg 02/18/25 12:53 Nitroglycerin Sl Tabs 0.4 Mg Tab SUBLINGUAL Q5M PRN Chest Pain Nitroglycerin 1 inch 02/18/25 13:00 02/18/25 13:15 Nitroglycerin Oint 1 Inch/Gm Packet TOPICAL 1 inch Q6HR PAL Administration Intake and Output 02/17/25 02/18/25 02/18/25 22:59 06:59 14:59 Other: Weight 58.967 kg Patient Weight 02/19/25 06:59 Weight 58.967 kg
[2025-02-18] MEDS: ATORVASTATIN 80 MG TAB PO SCH (21:39)
[2025-02-18] MEDS: ASPIRIN 81 MG PO SCH (21:39)
[2025-02-19 00:32] LABS: Basophils # (A) 0.07 10*3/uL (0.00-0.10); Basophils % (A) 0.8 %; Eosinophils % (A) 2.4 %; HCT 34.9 % (39.6-50.0); HGB 11.7 g/dL (13.0-17.0); Lymphocytes # (A) 2.42 10*3/uL (0.90-5.00); Lymphocytes % (A) 28.7 %; MCH 31.2 pg (27.0-32.0); MCHC 33.5 g/dL (32.0-37.0); MCV 93.1 fL (80.0-97.0); Mean Platelet Volume 10.3 fL (9.5-12.2); Monocytes # (A) 1.14 10*3/uL (0.20-1.00); Monocytes % (A) 13.5 %; Neutrophils # (A) 4.57 10*3/uL (1.80-7.70); Neutrophils % (A) 54.4 %; Platelet Count 151 10*3/uL (140-440); RBC 3.75 10*6/uL (4.40-5.60); RDW 14.2 % (11.5-14.5); WBC 8.42 10*3/uL (4.50-10.00)
[2025-02-19 00:46] LABS: African American GFR (CKD) 48 (>60 ml/min/1.73 sqM); Anion Gap 8 mmol/L; Blood Urea Nitrogen 21 mg/dL (9-20); Calcium 9.5 mg/dL (8.4-10.2); Carbon Dioxide 24 mmol/L (22-30); Chloride 104 mmol/L (98-107); Glucose 100 mg/dL (74-99); Non-African American GFR(CKD) 41 (>60 ml/min/1.73 sqM); Sodium 136 mmol/L (137-145)
[2025-02-19 02:21] VITALS: PULSE 72
[2025-02-19 02:38] LABS: Chol/HDL Ratio 2.09 Ratio; LDL Cholesterol,Calculated 26.6 mg/dL (0.0-131.0); VLDL Calculation 12.64 mg/dL (5.00-40.00)
[2025-02-19 08:05] VITALS: BP 101/63; RESP 18; TEMP 97.9
[2025-02-19] MEDS ORDERED: CAFFEINE CITRATE 60 MG/3 ML VIAL IV PRN (08:25)
[2025-02-19] MEDS ORDERED: REGADENOSON 0.4 MG/5 ML SYRINGE IV PRN (08:25)
[2025-02-19] MEDS ORDERED: AMINOPHYLLINE 500 MG/20 ML VIAL IV PRN (08:25)
[2025-02-19] MEDS ORDERED: ASPIRIN 325 MG TAB PO SCH (09:00)
--- NOTE | 2025-02-19 11:59 | P.PN ---
Subjective Progress Note Date: 02/19/25 Consult reason: chest pain History of present illness: This is a 74-year-old male patient of Dr. Raymundo with past medical history of coronary artery disease with known BARBER STYLIST of the RCA and intermediate disease involving the LAD, hypertension, dyslipidemia, history of bladder cancer with metastatic disease to the kidneys and lungs currently on oral Balversa, chronic kidney disease, COPD, remote history of tobacco use. Patient states that he woke and had bad chest pain this morning on the left side of his chest involved his left arm. He states the pain right now is a #7. He was initially seen at [facility] and transferred to [facility]. He does have tenderness to the chest wall. Discussed results of the initial testing and patient is agre eable to move forward with a stress test tomorrow. Lab work obtained at [place] revealed WBC 8, hemoglobin 13.3, platelet count 169, BUN 21 creatinine 1.7, troponin 5.1 with normal scale 0-17.5. Patient is seen today in the emergency center waiting for a bed on the observation unit. -EKG: Sinus rhythm with no acute ST changes. -Home cardiac medications: Aspirin 81 mg daily, atorvastatin 80 mg at bedtime. -Cardiac catheterization performed 2019 revealed 50% proximal LAD, 100% distal RCA, mild disease in the left circumflex and left main -Echocardiogram performed 08/13/2024 at [facility] revealed EF of 55 to 60% with mild concentric LVH. Mild to moderate dilatation of the right ventricle. Mildly elevated right-sided pressures. Mild mitral and tricuspid regurgitation. No pericardial effusion. 02/19 Patient seen and examined on the observation unit. His repeat troponins came back negative x 2. Patient is scheduled for Lexiscan Cardiolite stress test today. Blood pressure 101/63, heart rate 72, pulse ox 90% on 2 L nasal cannula. Repeat blood work reveals BUN 21 creatinine 1.62, hemoglobin 7.7. Triglycerides 63, cholesterol 75, LDL 26. Echocardiogram is pending. Physical examination: Gen: This is 74-year-old male in no acute distress. VS: reviewed HEENT: Head is atraumatic, normocephalic. Pupils equal, round. Sclerae is anicteric. NECK: Supple. No JVD. LUNGS: Clear to auscultation. No wheezes or rhonchi. No intercostal retractions. HEART: Regular rate and rhythm. No murmur. ABDOMEN: Soft No tenderness. EXTREMITIES: No pedal edema. No calf tenderness. NEUROLOGICAL: Patient is awake, alert and oriented x3. Assessment: Chest pain Coronary artery disease with known BARBER STYLIST of the RCA and intermediate disease involving the LAD Hypertension Dyslipidemia History of bladder cancer with metastatic disease to the kidneys and lungs Chronic kidney disease stage III COPD Remote history of tobacco use Plan: Continue patient's home cardiac medications Obtain Lexiscan Cardiolite stress test today Obtain 2-D echocardiogram and Doppler study to assess cardiac structure and function If above testing is unremarkable, patient is cleared for discharge and will follow-up in the office with Dr. Raymundo in 1 to 2 weeks. Nurse practitioner note has been reviewed, I agree with documented findings and plan of care. Patient was seen and examined. Objective - Vital Signs Vital signs: Vital Signs Temp 97.9 F 02/19/25 07:10 Pulse 72 02/19/25 07:10 Resp 18 02/19/25 07:10 BP 101/63 02/19/25 07:10 Pulse Ox 90 L 02/19/25 07:10 FiO2 Intake & Output 02/18/25 02/19/25 02/19/25 18:59 06:59 18:59 Weight 58.967 kg Other: # Voids 3 # Bowel Movements 1 - Labs CBC & Chem 7: 02/19/25 00:10 02/19/25 00:10 Labs: Abnormal Lab Results - Last 24 Hours (Table) 02/19/25 02/19/25 02/19/25 Range/Units 00:10 00:10 00:10 RBC 3.75 L (4.40-5.60) 10*6/uL Hgb 11.7 L (13.0-17.0) g/dL Hct 34.9 L (39.6-50.0) % Monocytes # 1.14 H (0.20-1.00) 10*3/uL Sodium 136 L (137-145) mmol/L BUN 21 H (9-20) mg/dL Creatinine 1.62 H (0.66-1.25) mg/dL Glucose 100 H (74-99) mg/dL HDL Cholesterol 35.80 L (40.00-60.00) mg/dL
--- NOTE | 2025-02-19 12:53 | NM ---
EXAMINATION TYPE: NM stress lexiscan cardiolite DATE OF EXAM: 02/19/2025 COMPARISON: NONE CLINICAL INDICATION: Male, 74 years old with history of chest pain; TECHNIQUE: After the intravenous administration of 10.5 mCi Tc 99m Sestamibi - Cardiolite resting SP ECT images acquired 45 minutes post injection. The patient received 0.4mg Lexiscan, 25.9 mCi Tc 99m Sestamibi - Stress images obtained [address] injection FINDINGS: Review of stress and rest SPECT images demonstrates fixed defect anterior wall. A small area of the r eversibility involving the lateral wall. Correlate for stress imaging. Gated analysis shows normal wa ll motion with an estimated left ventricular ejection fraction of 49 %. IMPRESSION: A small area of the reversibility involving the lateral wall. Correlate for stress imaging. [facility], , 02/19/2025 12:51 PM
--- NOTE | 2025-02-19 13:33 | P.HPIM ---
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 EKG showed sinus rhythm without any acute ST-T wave changes patient had a cardia catheterization in 2019 which showed 50% proximal LAD occlusion 100% RCA occlusion mild disease in left circumflex and left main echocardiogram showed normal ejection fraction and July 2024. Chest x-ray did not show any significant abnormality patient has some pleuritic component to his chest pain. Patient takes statin and aspirin. Not on any beta-willie at this time. REVIEW OF SYSTEMS: All other systems are negative except those mentioned in the HPI PHYSICAL EXAMINATION: GENERAL: The patient is alert and oriented x3, not in any acute distress. Well developed, well nourished. HEENT: Pupils are round and equally reacting to light. EOMI. No scleral icterus. No conjunctival pallor. Normocephalic, atraumatic. No pharyngeal erythema. No thyromegaly. CARDIOVASCULAR: S1 and S2 present. No murmurs, rubs, or gallops. PULMONARY: Chest is clear to auscultation, no wheezing or crackles. ABDOMEN: Soft, nontender, nondistended, normoactive bowel sounds. No palpable organomegaly. MUSCULOSKELETAL: No joint swelling or deformity. EXTREMITIES: No cyanosis, clubbing, or pedal edema. NEUROLOGICAL: Gross neurological examination did not reveal any focal deficits. SKIN: No rashes. Assessment and plan -Chest pain will rule out acute coronary syndromes, cardiology was consulted. 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 - History of bladder cancer metastatic disease to kidneys and lungs in the past - COPD without any acute exacerbation - Hyperlipidemia - Hypertension: Patient is presently not on any medications for this -Rule out pulmonary embolism with a D-dimer chest x-ray did not show any pneumonia DVT prophylaxis: Early ambulation Past Medical History Past Medical History: Cancer, COPD, GERD/Reflux, Hypertension, Osteoarthritis (OA), Renal Disease Additional Past Medical History / Comment(s): hx kidney stones, lung CA 2.5 year IV chemo and now PO Chemo, neuropathy History of Any Multi-Drug Resistant Organisms: None Reported Past Surgical History: Hernia Repair Additional Past Surgical History / Comment(s): lithotripsy, wire lt eyelid Past Anesthesia/Blood Transfusion Reactions: No Reported Reaction, Motion Sickness Past Psychological History: No Psychological Hx Reported Smoking Status: Former smoker Past Alcohol Use History: None Reported Additional Past Alcohol Use History / Comment(s): smoker for few years quit 1993 Past Drug Use History: None Reported - Past Family History Father Family Medical History: Cancer Mother Family Medical History: Cancer Sister(s) Family Medical History: Cancer Medications and Allergies Home Medications Medication Instructions Recorded Confirmed Type Aspirin EC [Ecotrin Low Dose] 81 mg PO HS 08/13/24 02/18/25 History Atorvastatin [Lipitor] 80 mg PO HS 08/13/24 02/18/25 History Citric Acid 590 mg PO DAILY 08/13/24 02/18/25 History Erdafitinib [Balversa] 4 mg PO Q2D 08/13/24 02/18/25 History Omeprazole [PriLOSEC] 20 mg PO DAILY 08/13/24 02/18/25 History Carboxymethylcellulose Sodium 1 drop BOTH EYES Q2H PRN 02/18/25 02/18/25 History [Refresh Tears] Eszopiclone [Lunesta] 1 mg PO HS PRN 02/18/25 02/18/25 History Super B Complex 1 tab PO W/SUPPER 02/18/25 02/18/25 History Allergies Allergy/AdvReac Type Severity Reaction Status Date / Time Tetanus Vaccines and Toxoid Allergy Unknown Verified 02/18/25 14:36 Physical Exam Vitals: Vital Signs Temp Pulse Pulse Resp BP BP BP 02/19/25 07:10 97.9 F 72 18 101/63 02/19/25 01:03 98 F 72 20 96/57 02/18/25 18:45 98.6 F 71 20 100/63 02/18/25 18:22 98.2 F 83 16 109/67 02/18/25 17:15 90 18 116/70 02/18/25 16:39 89 18 98/68 Pulse Ox 02/19/25 07:10 90 L 02/19/25 01:03 94 L 05/01/25 18:45 94 L 02/18/25 18:22 98 02/18/25 17:15 92 L 02/18/25 16:39 88 L Intake and Output 02/18/25 02/19/25 02/19/25 22:59 06:59 14:59 Other: # Voids 1 3 # Bowel Movements 1 Weight 58.967 kg Results CBC & Chem 7: 02/19/25 00:10 02/19/25 00:10 Labs: Abnormal Lab Results - Last 24 Hours (Table) 02/19/25 02/19/25 02/19/25 Range/Units 00:10 00:10 00:10 RBC 3.75 L (4.40-5.60) 10*6/uL Hgb 11.7 L (13.0-17.0) g/dL Hct 34.9 L (39.6-50.0) % Monocytes # 1.14 H (0.20-1.00) 10*3/uL Sodium 136 L (137-145) mmol/L BUN 21 H (9-20) mg/dL Creatinine 1.62 H (0.66-1.25) mg/dL Glucose 100 H (74-99) mg/dL HDL Cholesterol 35.80 L (40.00-60.00) mg/dL Thrombosis Risk Factor Assmnt - Choose All That Apply Each Risk Factor Represents 2 Points: Age 61-74 years Thrombosis Risk Factor Assessment Total Risk Factor Score: 2 Thrombosis Risk Factor Assessment Level: Low Risk
--- NOTE | 2025-02-19 13:39 | P.DS ---
Providers Date of admission: 02/18/25 12:54 Attending physician: Monalisa Ellis Consults: 02/18/25 12:53 Consult Physician Urgent Consulting Provider: Tre Raymundo Consult Reason/Comments: cp Do you want consulting provider notified?: Yes Primary care physician: Kelle Miller MD Hospital Course: Patient is admitted for chest pain rule out acute coronary syndrome cervical: Syndromes were ruled out patient has complete total occlusion of RCA and intermediate disease involving the LAD cardiology evaluated the patient and ordered a stress test patient with a small area of reversibility involving the lateral wall. Will discuss with cardiology if he will need any further testing. If this reversibility is due to his existing disease and if cleared by cardiology patient will be discharged or else patient will undergo cardiac catheterization here. REVIEW OF SYSTEMS: All other systems are negative except those mentioned in the HPI PHYSICAL EXAMINATION: GENERAL: The patient is alert and oriented x3, not in any acute distress. Well developed, well nourished. HEENT: Pupils are round and equally reacting to light. EOMI. No scleral icterus. No conjunctival pallor. Normocephalic, atraumatic. No pharyngeal erythema. No thyromegaly. CARDIOVASCULAR: S1 and S2 present. No murmurs, rubs, or gallops. PULMONARY: Chest is clear to auscultation, no wheezing or crackles. ABDOMEN: Soft, nontender, nondistended, normoactive bowel sounds. No palpable organomegaly. MUSCULOSKELETAL: No joint swelling or deformity. EXTREMITIES: No cyanosis, clubbing, or pedal edema. NEUROLOGICAL: Gross neurological examination did not reveal any focal deficits. SKIN: No rashes. 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 - History of bladder cancer metastatic disease to kidneys and lungs in the past - COPD without any acute exacerbation - Hyperlipidemia - Hypertension: Patient is presently not on any medications for this -Rule out pulmonary embolism with a D-dimer chest x-ray did not show any pneu monia If stress test is negative and if cardiology clears him with above-mentioned stress test results patient will be discharged or else patient will undergo cardiac catheterization. Patient Condition at Discharge: Serious Plan - Discharge Summary Discharge Rx Participant: No New Discharge Prescriptions: Continue Omeprazole [PriLOSEC] 20 mg PO DAILY Citric Acid 590 mg PO DAILY Aspirin EC [Ecotrin Low Dose] 81 mg PO HS Erdafitinib [Balversa] 4 mg PO Q2D Atorvastatin [Lipitor] 80 mg PO HS Carboxymethylcellulose Sodium [Refresh Tears] 1 drop BOTH EYES Q2H PRN PRN Reason: DRY EYES Super B Complex 1 tab PO W/SUPPER Eszopiclone [Lunesta] 1 mg PO HS PRN PRN Reason: Insomnia Discharge Medication List Aspirin EC [Ecotrin Low Dose] 81 mg PO HS 08/13/24 [History] Atorvastatin [Lipitor] 80 mg PO HS 08/13/24 [History] Citric Acid 590 mg PO DAILY 08/13/24 [History] Erdafitinib [Balversa] 4 mg PO Q2D 08/13/24 [History] Omeprazole [PriLOSEC] 20 mg PO DAILY 08/13/24 [History] Carboxymethylcellulose Sodium [Refresh Tears] 1 drop BOTH EYES Q2H PRN 02/18/25 [History] Eszopiclone [Lunesta] 1 mg PO HS PRN 02/18/25 [History] Super B Complex 1 tab PO W/SUPPER 02/18/25 [History] Follow up Appointment(s)/Referral(s): Tre Raymundo MD [STAFF PHYSICIAN] - 1 Week Kelle Miller MD [Primary Care Provider] - 3 Days
--- NOTE | 2025-02-19 13:39 | P.PN ---
Subjective Patient is admitted for chest pain rule out acute coronary syndrome cervical: Syndromes were ruled out patient has complete total occlusion of RCA and intermediate disease involving the LAD cardiology evaluated the patient and ordered a stress test patient with a small area of reversibility involving the lateral wall. Will discuss with cardiology if he will need any further testing. If this reversibility is due to his existing disease and if cleared by cardiology patient will be discharged or else patient will undergo cardiac catheterization here. REVIEW OF SYSTEMS: All other systems are negative except those mentioned in the HPI PHYSICAL EXAMINATION: GENERAL: The patient is alert and oriented x3, not in any acute distress. Well developed, well nourished. HEENT: Pupils are round and equally reacting to light. EOMI. No scleral icterus. No conjunctival pallor. Normocephalic, atraumatic. No pharyngeal erythema. No thyromegaly. CARDIOVASCULAR: S1 and S2 present. No murmurs, rubs, or gallops. PULMONARY: Chest is clear to auscultation, no wheezing or crackles. ABDOMEN: Soft, nontender, nondistended, normoactive bowel sounds. No palpable organomegaly. MUSCULOSKELETAL: No joint swelling or deformity. EXTREMITIES: No cyanosis, clubbing, or pedal edema. NEUROLOGICAL: Gross neurological examination did not reveal any focal deficits. SKIN: No rashes. 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 - History of bladder cancer metastatic disease to kidneys and lungs in the past - COPD without any acute exacerbation - Hyperlipidemia - Hypertension: Patient is presently not on any medications for this -Rule out pulmonary embolism with a D-dimer chest x-ray did not show any pneumonia If stress test is negative and if cardiology clears him with above-mentioned stress test results patient will be discharged or else patient will undergo card iac catheterization. DVT prophylaxis: Early ambulation Objective - Vital Signs Vital signs: Vital Signs Temp 97.9 F 02/19/25 07:10 Pulse 72 02/19/25 07:10 Resp 18 02/19/25 07:10 BP 101/63 02/19/25 07:10 Pulse Ox 90 L 02/19/25 07:10 FiO2 Intake & Output 02/18/25 02/19/25 02/19/25 18:59 06:59 18:59 Weight 58.967 kg Other: # Voids 3 # Bowel Movements 1 - Labs CBC & Chem 7: 02/19/25 00:10 02/19/25 00:10 Labs: Abnormal Lab Results - Last 24 Hours (Table) 02/19/25 02/19/25 02/19/25 Range/Units 00:10 00:10 00:10 RBC 3.75 L (4.40-5.60) 10*6/uL Hgb 11.7 L (13.0-17.0) g/dL Hct 34.9 L (39.6-50.0) % Monocytes # 1.14 H (0.20-1.00) 10*3/uL Sodium 136 L (137-145) mmol/L BUN 21 H (9-20) mg/dL Creatinine 1.62 H (0.66-1.25) mg/dL Glucose 100 H (74-99) mg/dL HDL Cholesterol 35.80 L (40.00-60.00) mg/dL
--- NOTE | 2025-02-19 16:47 | CA ---
Lexiscan Nuclear Stress Test Report Name: César Akbar Exam Date: 02/19/2025 10:16 Exam Location: [facility] Ht (in): 66 Wt (lb): 130 BSA: 1.67 Ordering Phys: Omar Jiménez Referring Phys: OMAR JIMÉNEZ Technologist: AROLDO YANG Age: 74 Gender: M : 1950 Procedure CPT: Indications: Reflex order-Stress test ICD-10 Codes: Patient History: Medications: SEE CHART,,, Meds past 24 hrs: Pretest Chest Pain: STRESS TEST Lexiscan Protocol Exercise Duration (min:sec): 02:[address] Depressions (mm): Angina Score: Romo Score: Resting HR (bpm): 78 Peak HR (bpm): 95 Resting BP (mmHg): 109 / 54 Peak BP (mmHg): 98 / 53 MPHR: 147 Target HR: 125 % MPHR: 65 METS: 1.0 Total Dose: Peak Dose: Atropine: Double Product: 9310 BP Response: Stress Termination: INFUSION COMPLETE Stress Symptoms: NO SYMPTOMS Stress Summary: ECG ANALYSIS Resting ECG: Stress ECG: CONCLUSIONS At baseline EKG showed minimal ST elevation in the inferior leads and V3 through V6 concerning for possible pericarditis with no reciprocal changes. Patient recieved IV infusion of Lexiscan 0.4mg and at peak infusion EKG showed no significant change from baseline. Conclusions: 1. Nonspecific stress EKG portion secondary baseline EKG abnormalities with minimal ST elevation and borderline AR depression with no reciprocal changes concerning for pericarditis 2. Nuclear imaging to be reported separately. Dr. Sergei Siu DO (Electronically Signed) Final Date: 19 Feb 2025 16:46
--- NOTE | 2025-02-19 17:11 | CA ---
Transthoracic Echo Report Name: César Akbar Age: 74 Gender: M : 1950 Exam Date: 02/19/2025 10:44 Exam Location: [facility] Ht (in): 66 Wt (lb): 130 Ordering Physician: Boubacar Foster DO Attending/Referring Phys: Camp Counselor Liz Pearce RDCS Procedure CPT: Indications: CP Cardiac Hx: Technical Quality: Fair Contrast 1: Total Dose (mL): Contrast 2: Total Dose (mL): MEASUREMENTS (Male / Female) Normal Values 2D ECHO LV Diastolic Diameter PLAX 4.5 cm 4.2 - 5.9 / 3.9 - 5.3 cm LV Systolic Diameter PLAX 2.6 cm IVS Diastolic Thickness 1.1 cm 0.6 - 1.0 / 0.6 - 0.9 cm LVPW Diastolic Thickness 1.0 cm 0.6 - 1.0 / 0.6 - 0.9 cm LV Relative Wall Thickness 0.5 RV Internal Dim ED PLAX 2.2 cm LVOT Diameter 2.1 cm LA Systolic Diameter LX 3.6 cm 3.0 - 4.0 / 2.7 - 3.8 cm LV Diastolic Volume MOD BP 65.8 cm??? 67 - 155 / 56 - 104 cm??? LV Systolic Volume MOD BP 24.3 cm??? 22 - 58 / 19 - 49 cm??? LV Ejection Fraction MOD BP 63.0 % >= 55 % LV Cardiac Index MOD BP 2254.6 cm???/min???m??? LV Diastolic Volume MOD 4C 64.4 cm??? LV Systolic Volume MOD 4C 25.2 cm??? LV Ejection Fraction MOD 4C 60.9 % LV Cardiac Index MOD 4C 2133.3 cm???/min???m??? LV Diastolic Length 4C 7.1 cm LV Systolic Length 4C 5.3 cm LV Diastolic Volume MOD 2C 67.3 cm??? LV Systolic Volume MOD 2C 22.1 cm??? LV Ejection Fraction MOD 2C 67.2 % LV Cardiac Index MOD 2C 2458.9 cm???/min???m??? LV Diastolic Length 2C 7.1 cm LV Systolic Length 2C 5.7 cm LA Volume 45.7 cm??? 18 - 58 / 22 - 52 cm??? LA Volume Index 27.6 cm???/m??? 16 - 28 cm???/m??? M-MODE Aortic Root Diameter MM 3.7 cm LA Systolic Diameter MM 3.0 cm LA Ao Ratio MM 0.8 AV Cusp Separation MM 1.6 cm DOPPLER AV Peak Velocity 168.9 cm/s AV Peak Gradient 11.4 mmHg AV Mean Velocity 118.6 cm/s AV Mean Gradient 6.3 mmHg AV Velocity Time Integral 37.2 cm LVOT Peak Velocity 96.9 cm/s LVOT Peak Gradient 3.8 mmHg LVOT Velocity Time Integral 22.7 cm LVOT Stroke Volume 82.3 cm??? LVOT Stroke Volume Index 49.4 ml/m??? LVOT Cardiac Index 4472.5 cm???/min???m??? AV Area Cont Eq vti 2.2 cm??? AV Area Cont Eq pk 2.1 cm??? MV Area PHT 2.6 cm??? Mitral E Point Velocity 52.9 cm/s Mitral A Point Velocity 73.4 cm/s Mitral E to A Ratio 0.7 MV Deceleration Time 288.7 ms TR Peak Velocity 303.5 cm/s TR Peak Gradient 36.8 mmHg Right Atrial Pressure 8.0 mmHg Pulmonary Artery Systolic Pressu 44.8 mmHg Right Ventricular Systolic Press 44.8 mmHg FINDINGS Left Ventricle Left ventricular ejection fraction is estimated at 55-60%. Normal left ventricular systolic function with no obvious regional wall motion abnormalities. Left ventricular cavity size normal. Left ventricular wall thickness normal. Right Ventricle Mild right ventricular dilatation. Mild pulmonary hypertension. Right Atrium Mild right atrial dilatation. Catheter/pacemaker wire in the right atrial cavity. Left Atrium Mild left atrial dilatation. Mitral Valve Structurally normal mitral valve. Mild mitral regurgitation. No mitral stenosis. Aortic Valve Trileaflet aortic valve. Diffuse thickening (sclerosis) of the aortic valve cusps without reduced excursion. No aortic regurgitation. Tricuspid Valve Structurally normal tricuspid valve. Mild tricuspid regurgitation. No tricuspid stenosis. Pulmonic Valve Structurally normal pulmonic valve. Trace pulmonic regurgitation. No pulmonic stenosis. Pericardium No pericardial or pleural effusion. Aorta Aorta at upper limits of normal. CONCLUSIONS Left ventricular ejection fraction 55 to 60% RVSP 44 Mild mitral regurgitation Mild tricuspid regurgitation No pericardial effusion Previewed by: Dr. Sergei Siu DO (Electronically Signed) Final Date: 19 Feb 2025 17:09
== END 2025-02-19 15:52 | disposition home or self-care (01) ==
LOC: EC 11:39 → 6NMEDSUR 12:54
PROVIDERS: ADMIT Internal Medicine; ATTEND Internal Medicine
DX: R07.89 Other chest pain (principal); I25.82 Chronic total occlusion of coronary artery; I25.10 Atherosclerotic heart disease of native coronary artery without angina pectoris; I12.9 Hypertensive chronic kidney disease with stage 1 through stage 4 chronic kidney disease, or unspecified chronic kidney disease; N18.30 Chronic kidney disease, stage 3 unspecified; I08.1 Rheumatic disorders of both mitral and tricuspid valves; I95.9 Hypotension, unspecified; E78.5 Hyperlipidemia, unspecified; J44.9 Chronic obstructive pulmonary disease, unspecified; C78.00 Secondary malignant neoplasm of unspecified lung; C79.00 Secondary malignant neoplasm of unspecified kidney and renal pelvis; Z79.82 Long term (current) use of aspirin; Z79.899 Other long term (current) drug therapy; Z88.7 Allergy status to serum and vaccine; Z87.891 Personal history of nicotine dependence; Z85.51 Personal history of malignant neoplasm of bladder
CPT/HCPCS: 99285; 93005; 93017; 93306; 85379; 80061; 80048; 84484; 85025; 78452; G0378 ×2; A9500; J2785